=== PATIENT | female | born 1970 | race Caucasian/White ===

== ENCOUNTER 2018-09-03 22:32 | Emergency (ER) | payer BC, SELFPAY ==
[2018-09-03 23:43] LABS: Absolute Lymphocytes (CBC) 1.9 K/uL (0.7-4.9); Absolute Monocytes 0.5 K/uL (0.1-1.3); Absolute Neutrophil 5.6 K/uL (1.8-8.0); Basophils % 0.6 % (0-1.3); Eosinophils % 0.5 % (0-4.4); Hematocrit 33.5 % (36.0-45.0); Lymphocytes % 24.2 % (15.3-44.8); MCH 32.3 pg (27.0-35.0); MCV 92.1 fL (80-100); MPV 8.1 fL (7.6-11.3); Monocytes % 5.8 % (3.3-12.3); RBC Red Blood Cell Count 3.64 M/uL (3.86-4.86)
[2018-09-03 23:52] LABS: ALT/SGPT 16 U/L (12-78); AST/SGOT 11 U/L (15-37); Albumin 3.2 g/dL (3.4-5.0); Alkaline Phosphatase 87 U/L (45-117); BUN Blood Urea Nitrogen 21 mg/dL (7-18); Bicarbonate 25 mmol/L (21-32); Bilirubin Total 0.5 mg/dL (0.2-1.0); Glucose Level 359 mg/dL (74-106); Protein, Total 6.2 g/dL (6.4-8.2); Sodium Level 138 mmol/L (136-145)
--- NOTE | 2018-09-04 00:29 | ER ---
Nurse's Notes [facility] Name: Dora Bell Age: 48 yrs Sex: Female : 1970 Arrival Date: 09/03/2018 Time: 22:35 Bed 15 Private MD: Diagnosis: Hyperglycemia, unspecified;Vomiting;Viral Gastroenteritis Presentation: 09/03 22:36 Presenting complaint: EMS states: "pt was feeling bad since about 1300 with periods of jd3 vomiting and nausea. around 2100 pt took blood sugar and it was about 536. pt took 20 units of regular insulin. blood sugar was still high when we picked her up.". Transition of care: patient was not received from another setting of care. Onset of symptoms was September 03, 2018. Risk Assessment: Do you want to hurt yourself or someone else? Patient reports no desire to harm self or others. Initial Sepsis Screen: Does the patient meet any 2 criteria? No. Patient's initial sepsis screen is negative. Does the patient have a suspected source of infection? No. Patient's initial sepsis screen is negative. Care prior to arrival: Medication(s) given: Normal saline infusion, 500 mL, IV initiated. 20 GA, in the right hand, Glucose check: 536. 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 - Social history:: Smoking status: Patient uses tobacco products, smokes one-half pack cigarettes per day. - Ebola Screening: : Patient negative for fever greater than or equal to 101.5 degrees Fahrenheit, and additional compatible Ebola Virus Disease symptoms. Screenin:43 Abuse screen: Denies threats or abuse. Nutritional screening: No deficits noted. jd3 Tuberculosis screening: No symptoms or risk factors identified. Fall Risk IV access (20 points). Ambulatory Aid- None/Bed Rest/Nurse Assist (0 pts). Gait- Normal/Bed Rest/Wheelchair (0 pts) Mental Status- Oriented to own ability (0 pts). Total Corona Fall Scale indicates No Risk (0-24 pts). Assessment: 22:40 General: Appears in no apparent distress. comfortable, Behavior is calm, cooperative, aa1 appropriate for age. Pain: Denies pain. Neuro: Level of Consciousness is awake, alert, obeys commands, Oriented to person, place, time, situation, Moves all extremities. Full function Speech is normal. Respiratory: Airway is patent Respiratory effort is even, unlabored, Respiratory pattern is regular, symmetrical. GI: Abdomen is non-distended, Reports nausea, vomiting, Patient currently denies abdominal pain, constipation, diarrhea. : No signs and/or symptoms were reported regarding the genitourinary system. EENT: No signs and/or symptoms were reported regarding the EENT system. Derm: Skin is intact, is healthy with good turgor, Skin is pink, warm \\T\\ dry. Musculoskeletal: Circulation, motion, and sensation intact. Capillary refill < 3 seconds. 23:55 Reassessment: Patient appears in no apparent distress at this time. Patient and/or aa1 family updated on plan of care and expected duration. Pain level reassessed. Patient is alert, oriented x 3, equal unlabored respirations, skin warm/dry/pink. Awaiting CBC results. 09/04 00:39 Reassessment: Patient appears in no apparent distress at this time. Patient is alert, aa1 oriented x 3, equal unlabored respirations, skin warm/dry/pink. Discussed d/c \\T\\ f/u instructions with pt \\T\\ spouse; denies questions or concerns at this time Patient denies pain at this time. Patient states feeling better. Vital Signs: 09/03 22:42 BP 135 / 74; Pulse 91; Resp 16 S; Temp 98.5(O); Pulse Ox 98% on R/A; Weight 65.77 kg jd3 (R); Height 5 ft. 5 in. (165.10 cm) (R); Pain 0/10; 23:55 BP 130 / 70; Pulse 88; Resp 16; Pulse Ox 96% on R/A; Pain 0/10; aa1 09/04 00:39 BP 133 / 68; Pulse 87; Resp 18; Temp 98.6; Pulse Ox 96% on R/A; Pain 0/10; aa1 09/03 22:42 Body Mass Index 24.13 (65.77 kg, 165.10 cm) [facility] ED Course: 09/03 22:35 Patient arrived in ED. jd3 22:38 David Perry NP is PHCP. pm1 22:38 Humza Herring MD is Attending Physician. pm1 22:39 Triage completed. jd3 22:40 Maintain EMS IV. Dressing intact. Site clean \\T\\ dry. Gauge \\T\\ site: 20g R hand. aa 1 22:42 Arm band placed on. jd3 22:43 Patient has correct armband on for positive identification. Bed in low position. Call [facility] light in reach. Side rails up X 1. Adult w/ patient. 22:45 Adilene Clancy, RN is Primary Nurse. aa1 23:08 Initial lab(s) drawn, by nd, sent to lab. aa1 09/04 00:39 No provider procedures requiring assistance completed. IV discontinued, intact, aa1 bleeding controlled, No redness/swelling at site. Pressure dressing applied. Administered Medications: No medications were administered Point of Care Testing: Blood Glucose: 09/03 22:36 Blood Glucose: 378 mg/dL; ds4 Ranges: Outcome: 09/04 00:28 Discharge ordered by MD. pm1 00:39 Discharged to home ambulatory, with significant other. aa1 00:39 Condition: good 00:39 Discharge instructions given to patient, significant other, Instructed on discharge instructions, follow up and referral plans. medication usage, Demonstrated understanding of instructions, follow-up care, medications, Prescriptions given X 1. 00:41 Patient left the ED. aa1 Signatures: Adilene Clancy, CARLEY RN aa1 Lio Azevedo ds4 David Perry NP MACHINE BILLER pm1 Geovanni Tristan RN RN jd3
--- NOTE | 2018-09-04 00:30 | EDPHYS ---
Physician Documentation [facility] Name: Dora Bell Age: 48 yrs Sex: Female : 1970 Arrival Date: 09/03/2018 Time: 22:35 Bed 15 Private MD: ED Physician Humza Herring HPI: 09/04 00:27 This 48 yrs old Female presents to ER via EMS with complaints of pm1 Hyperglycemia. 00:30 The patient or guardian reports hyperglycemia, that was potentially precipitated by not pm1 taking her long acting insulin today. Onset: The symptoms/episode began/occurred today. Associated signs and symptoms: Pertinent positives: vomiting, Pertinent negatives: diarrhea. Current symptoms: In the emergency department the patient's symptoms have improved. The patient has experienced similar episodes in the past, several times. The patient has not recently seen a physician. Patient with family members who are having stomach flu. Patient believes that she is starting to get that also. Reports 4 episodes of vomiting back to back and she felt relieved after vomiting. Patient checked her sugar and the reading was high. She did not take her long acting insulin today. 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 - Social history:: Smoking status: Patient uses tobacco products, smokes one-half pack cigarettes per day. - Ebola Screening: : Patient negative for fever greater than or equal to 101.5 degrees Fahrenheit, and additional compatible Ebola Virus Disease symptoms. ROS: 09/04 00:30 Constitutional: Negative for fever, chills, and weight loss, Eyes: Negative for injury, pm1 pain, redness, and discharge, ENT: Negative for injury, pain, and discharge, Neck: Negative for injury, pain, and swelling, Cardiovascular: Negative for chest pain, palpitations, and edema, Respiratory: Negative for shortness of breath, cough, wheezing, and pleuritic chest pain. Back: Negative for injury and pain, : Negative for injury, bleeding, discharge, and swelling, MS/Extremity: Negative for injury and deformity, Skin: Negative for injury, rash, and discoloration, Neuro: Negative for headache, weakness, numbness, tingling, and seizure. Abdomen/GI: Positive for nausea and vomiting, Negative for abdominal pain, vomiting. Exam: 00:30 Constitutional: This is a well developed, well nourished patient who is awake, alert, pm1 and in no acute distress. Head/Face: Normocephalic, atraumatic. Eyes: Pupils equal round and reactive to light, extra-ocular motions intact. Lids and lashes normal. Conjunctiva and sclera are non-icteric and not injected. Cornea within normal limits. Periorbital areas with no swelling, redness, or edema. ENT: Nares patent. No nasal discharge, no septal abnormalities noted. Tympanic membranes are normal and external auditory canals are clear. Oropharynx with no redness, swelling, or masses, exudates, or evidence of obstruction, uvula midline. Mucous membranes moist. Neck: Trachea midline, no thyromegaly or masses palpated, and no cervical lymphadenopathy. Supple, full range of motion without nuchal rigidity, or vertebral point tenderness. No Meningismus. Chest/axilla: Normal chest wall appearance and motion. Nontender with no deformity. No lesions are appreciated. Cardiovascular: Regular rate and rhythm with a normal S1 and S2. No gallops, murmurs, or rubs. Normal PMI, no JVD. No pulse deficits. Respiratory: Lungs have equal breath sounds bilaterally, clear to auscultation and percussion. No rales, rhonchi or wheezes noted. No increased work of breathing, no retractions or nasal flaring. Abdomen/GI: Soft, non-tender, with normal bowel sounds. No distension or tympany. No guarding or rebound. No evidence of tenderness throughout. Back: No spinal tenderness. No costovertebral tenderness. Full range of motion. Skin: Warm, dry with normal turgor. Normal color with no rashes, no lesions, and no evidence of cellulitis. MS/ Extremity: Pulses equal, no cyanosis. Neurovascular intact. Full, normal range of motion. Neuro: Awake and alert, GCS 15, oriented to person, place, time, and situation. Cranial nerves II-XII grossly intact. Motor strength 5/5 in all extremities. Sensory grossly intact. Cerebellar exam normal. Normal gait. Vital Signs: 09/03 22:42 BP 135 / 74; Pulse 91; Resp 16 S; Temp 98.5(O); Pulse Ox 98% on R/A; Weight 65.77 kg jd3 (R); Height 5 ft. 5 in. (165.10 cm) (R); Pain 0/10; 23:55 BP 130 / 70; Pulse 88; Resp 16; Pulse Ox 96% on R/A; Pain 0/10; aa1 09/04 00:39 BP 133 / 68; Pulse 87; Resp 18; Temp 98.6; Pulse Ox 96% on R/A; Pain 0/10; aa1 09/03 22:42 Body Mass Index 24.13 (65.77 kg, 165.10 cm) jd3 MDM: 09/03 22:39 Patient medically screened. pm1 09/04 00:20 Differential diagnosis: DKA, hyperglycemia. pm1 00:27 Data reviewed: vital signs. Data interpreted: Pulse oximetry: on room air is 96 %. pm1 Interpretation: normal. Counseling: I had a detailed discussion with the patient and/or guardian regarding: the historical points, exam findings, and any diagnostic results supporting the discharge/admit diagnosis, lab results, the need for outpatient follow up, to return to the emergency department if symptoms worsen or persist or if there are any questions or concerns that arise at home. 09/03 22:39 Order name: glucometer results - FOR PT WITH NO ID; Complete Time: 23:00 ds4 09/03 22:44 Order name: CBC with Diff; Complete Time: 00:26 pm1 09/03 22:44 Order name: IV Saline Lock; Complete Time: 22:46 pm1 09/03 22:44 Order name: CMP; Complete Time: 23:59 pm1 09/03 22:44 Order name: Ketone, Serum; Complete Time: 23:59 pm1 Administered Medications: No medications were administered Point of Care Testing: Blood Glucose: 09/03 22:36 Blood Glucose: 378 mg/dL; ds4 Ranges: Critical Glucose Levels:Adult <50 mg/dl or >400 mg/dl <40 mg/dl or >180 mg/dl Disposition: 09/04/18 00:28 Discharged to Home. Impression: Hyperglycemia, unspecified, Vomiting, Viral Gastroenteritis. - Condition is Stable. - Discharge Instructions: Hyperglycemia, Nausea and Vomiting, Adult, Viral Gastroenteritis, Adult, Blood Glucose Monitoring, Adult. - Prescriptions for Zofran 4 mg Oral Tablet - take 1 tablet by ORAL route every 12 hours As needed; 20 tablet. - Medication Reconciliation Form, Thank You Letter form. - Follow up: Emergency Department; When: As needed; Reason: Worsening of condition. Follow up: Private Physician; When: 2 - 3 days; Reason: Recheck today's complaints, Continuance of care, Re-evaluation by your physician. - Problem is new. - Symptoms have improved. Addendum: 09/07/2018 04:02 Co-signature as Attending Physician, Humza Herring MD. g s Signatures: Dispatcher [employer] EDAdilene Wooten RN RN aa1 David Perry, REFRIGERATED NATIONAL TRUCK DRIVER REFRIGERATED NATIONAL TRUCK DRIVER pm1 Humza Herring MD MD gs Davies, Jonathon, RN RN jd3 Corrections: (The following items were deleted from the chart) 09/04 00:34 09/03 22:44 Urine Dipstick-Ancillary ordered. pm1 aa1 09/04 00:34 09/03 22:44 Urine Test ordered. pm1 aa1 09/04 00:41 00:28 09/04/2018 00:28 Discharged to Home. Impression: Hyperglycemia, unspecified; aa1 Vomiting; Viral Gastroenteritis. Condition is Stable. Forms are Medication Reconciliation Form, Thank You Letter, Antibiotic Education, Prescription Opioid Use. Follow up: Emergency Department; When: As needed; Reason: Worsening of condition. Follow up: Private Physician; When: 2 - 3 days; Reason: Recheck today's complaints, Continuance of care, Re-evaluation by your physician. Problem is new. Symptoms have improved. pm1
== END 2018-09-04 00:41 | disposition home or self-care (01) ==
LOC: ER 22:32
DX: E11.65 Type 2 diabetes mellitus with hyperglycemia (principal); A08.4 Viral intestinal infection, unspecified; E03.9 Hypothyroidism, unspecified; F17.210 Nicotine dependence, cigarettes, uncomplicated; Z79.4 Long term (current) use of insulin
CPT/HCPCS: 36415; 80053; 82010; 82962; 85025; 99283

== ENCOUNTER 2019-01-12 22:08 | Emergency (ER) | payer BC ==
[2019-01-12 23:05] LABS: Absolute Lymphocytes (CBC) 1.8 K/uL (0.7-4.9); Absolute Monocytes 0.8 K/uL (0.1-1.3); Absolute Neutrophil 6.7 K/uL (1.8-8.0); Basophils % 1.2 % (0-1.3); Eosinophils % 1.2 % (0-4.4); Hematocrit 35.1 % (36.0-45.0); Lymphocytes % 18.5 % (15.3-44.8); MPV 8.5 fL (7.6-11.3); Monocytes % 8.5 % (3.3-12.3); RBC Red Blood Cell Count 3.99 M/uL (3.86-4.86)
[2019-01-12] MEDS ORDERED: ALBUTEROL 2.5 MG/3 ML NEB SOL ONE (23:15)
[2019-01-12] MEDS ORDERED: IPRATROPIUM BROM 0.5MG/2.5ML ONE (23:15)
[2019-01-12] MEDS ORDERED: NA CHLORIDE 0.9% 1,000 ML ONE (23:15)
[2019-01-12 23:29] LABS: ALT/SGPT 17 U/L (12-78); AST/SGOT 26 U/L (15-37); Albumin 3.1 g/dL (3.4-5.0); Alkaline Phosphatase 111 U/L (45-117); BUN Blood Urea Nitrogen 12 mg/dL (7-18); Bicarbonate 26 mmol/L (21-32); Bilirubin Direct < 0.1 mg/dL (0-0.2); Bilirubin Total 0.4 mg/dL (0.2-1.0); Glucose Level 186 mg/dL (74-106); Lipase 38 U/L (73-393); Protein, Total 6.6 g/dL (6.4-8.2); Sodium Level 137 mmol/L (136-145)
--- NOTE | 2019-01-13 00:05 | ER ---
Nurse's Notes [facility] Name: Dora Bell Age: 48 yrs Sex: Female : 1970 Arrival Date: 01/12/2019 Time: 22:12 Bed 23 Private MD: Diagnosis: Acute bronchitis;Hyperglycemia, unspecified Presentation: 01/12 22:30 Presenting complaint: Patient states: feeling sick for a week. C/O cough and ca1 congestion. Pt states, "I am diabetic and may be be on DKA right now. I had the same symptoms before when I had DKA". Transition of care: patient was not received from another setting of care. Onset of symptoms was January 12, 2019. Risk Assessment: Do you want to hurt yourself or someone else? Patient reports no desire to harm self or others. Initial Sepsis Screen: Does the patient meet any 2 criteria? No. Patient's initial sepsis screen is negative. Does the patient have a suspected source of infection? Yes: Productive cough/pneumonia. Care prior to arrival:. 22:30 Method Of Arrival: Wheelchair ca1 22:30 Acuity: DAVE 3 ca1 Triage Assessment: 22:36 General: Appears in no apparent distress. Behavior is calm, cooperative, appropriate ca1 for age. Pain: Complains of pain in neck Pain does not radiate. Pain currently is 4 out of 10 on a pain scale. Pain began 2-3 days ago. Respiratory: Airway is patent Respiratory effort is even, unlabored, Respiratory pattern is regular, symmetrical, Breath sounds are clear bilaterally. 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 - Social history:: Smoking status: Patient uses tobacco products, smokes one-half pack cigarettes per day. - Ebola Screening: : No symptoms or risks identified at this time. Screenin:39 Abuse screen: Denies threats or abuse. Denies injuries from another. Nutritional ca1 screening: No deficits noted. Tuberculosis screening: No symptoms or risk factors identified. Fall Risk None identified. Assessment: 22:39 General: Appears in no apparent distress. uncomfortable, Behavior is calm, cooperative, ca1 appropriate for age. Pain: Complains of pain in neck Pain does not radiate. Pain currently is 4 out of 10 on a pain scale. Pain began 2-3 days ago. Neuro: Level of Consciousness is awake, alert, obeys commands, Oriented to person, place, time, situation. Cardiovascular: Heart tones S1 S2 present Capillary refill < 3 seconds Patient's skin is warm and dry. Respiratory: Reports cough that is Airway is patent Respiratory effort is even, unlabored, Respiratory pattern is regular, symmetrical, Breath sounds are clear bilaterally. GI: Abdomen is flat, non-distended, Bowel sounds present X 4 quads. Abd is soft and non tender X 4 quads. : No deficits noted. No signs and/or symptoms were reported regarding the genitourinary system. EENT: Reports nasal congestion nasal discharge that is watery. Derm: Skin is intact, is healthy with good turgor, Skin is pink, warm \\T\\ dry. Musculoskeletal: Circulation, motion, and sensation intact. Capillary refill < 3 seconds. 23:46 Reassessment: Patient appears in no apparent distress at this time. Patient and/or ca1 family updated on plan of care and expected duration. Pain level reassessed. Patient is alert, oriented x 3, equal unlabored respirations, skin warm/dry/pink. 01/13 00:10 Reassessment: Patient appears in no apparent distress at this time. Patient is alert, ca1 oriented x 3, equal unlabored respirations, skin warm/dry/pink. Vital Signs: 01/12 22:36 BP 141 / 74; Pulse 82; Resp 19 S; Temp 98.1; Pulse Ox 96% on R/A; Weight 62.14 kg; ca1 Height 5 ft. 5 in. (165.10 cm); Pain 4/10; 23:09 BP 155 / 72; Pulse 81; Resp 19 S; Pulse Ox 100% on R/A; ca1 23:46 BP 135 / 62; Pulse 90; Resp 19 S; Pulse Ox 95% on R/A; ca1 01/13 00:10 BP 132 / 60; Pulse 89; Resp 19 S; Pulse Ox 99% on R/A; ca1 01/12 22:36 Body Mass Index 22.80 (62.14 kg, 165.10 cm) ca1 ED Course: 01/12 22:12 Patient arrived in ED. 22:22 Humza Herring MD is Attending Physician. 22:23 Viv Bolden, CARLEY is Primary Nurse. ca1 22:34 Triage completed. ca1 22:36 Arm band placed on right wrist. ca1 22:39 Patient has correct armband on for positive identification. Placed in gown. Bed in low ca1 position. Call light in reach. classroom monitor on. Pulse ox on. NIBP on. Warm blanket given. 22:40 Inserted saline lock: 22 gauge in right hand, using aseptic technique. Blood collected. ca1 22:40 Initial lab(s) drawn, by me, sent to lab. ca1 22:59 XRAY CXR (1 view) In Process Unspecified. EDMS 01/13 00:14 No provider procedures requiring assistance completed. IV discontinued, intact, ca1 bleeding controlled, No redness/swelling at site. Pressure dressing applied. Administered Medications: 04 22:40 Drug: Albuterol 2.5 mg Route: Inhalation; ca1 22:40 Drug: AtroVENT Aerosol 0.5 mg Route: Inhalation; ca1 22:44 Drug: NS 0.9% 1000 ml Route: IV; Rate: 1 bolus; Site: right hand; ca1 01/13 00:01 Follow up: Urine output 350 ml; Response: No adverse reaction; IV Status: Completed ca1 infusion Output: 00:01 Urine: 350ml; Total: 350ml. ca1 Outcome: 00:04 Discharge ordered by . 00:14 Discharged to home ambulatory, with significant other. ca1 00:14 Condition: stable 00:14 Discharge instructions given to patient, Instructed on discharge instructions, follow up and referral plans. medication usage, Demonstrated understanding of instructions, follow-up care, medications, Prescriptions given X 1. 00:15 Patient left the ED. ca1 Signatures: Dispatcher [employer] EDWI Stacey Painting Gregory, MD MD Viv Bolden RN RN ca1
--- NOTE | 2019-01-13 00:06 | EDPHYS ---
Physician Documentation [facility] Name: Dora Bell Age: 48 yrs Sex: Female : 1970 Arrival Date: 01/12/2019 Time: 22:12 Bed 23 Private MD: ED Physician Humza Herring HPI: 01/12 23:59 This 48 yrs old Female presents to ER via Wheelchair with complaints of gs Cough, Congestion, laryngitis. 23:59 The patient or guardian reports cough, described as moderate. Onset: The gs symptoms/episode began/occurred 1 week(s) ago, and became persistent. Severity of symptoms: At their worst the symptoms were moderate, in the emergency department the symptoms are unchanged. Modifying factors: The symptoms are alleviated by nothing, the symptoms are aggravated by nothing. Associated signs and symptoms: Pertinent negatives: fever. The patient has experienced similar episodes in the past, a few times. 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 - Social history:: Smoking status: Patient uses tobacco products, smokes one-half pack cigarettes per day. - Ebola Screening: : No symptoms or risks identified at this time. ROS: 23:59 All other systems are negative. gs Exam: 23:59 Head/Face: Normocephalic, atraumatic. Eyes: Pupils equal round and reactive to light, gs extra-ocular motions intact. Lids and lashes normal. Conjunctiva and sclera are non-icteric and not injected. Cornea within normal limits. Periorbital areas with no swelling, redness, or edema. Neck: Trachea midline, no thyromegaly or masses palpated, and no cervical lymphadenopathy. Supple, full range of motion without nuchal rigidity, or vertebral point tenderness. No Meningismus. Chest/axilla: Normal chest wall appearance and motion. Nontender with no deformity. No lesions are appreciated. Cardiovascular: Regular rate and rhythm with a normal S1 and S2. No gallops, murmurs, or rubs. Normal PMI, no JVD. No pulse deficits. Abdomen/GI: Soft, non-tender, with normal bowel sounds. No distension or tympany. No guarding or rebound. No evidence of tenderness throughout. Back: No spinal tenderness. No costovertebral tenderness. Full range of motion. Skin: Warm, dry with normal turgor. Normal color with no rashes, no lesions, and no evidence of cellulitis. MS/ Extremity: Pulses equal, no cyanosis. Neurovascular intact. Full, normal range of motion. Neuro: Awake and alert, GCS 15, oriented to person, place, time, and situation. Cranial nerves II-XII grossly intact. Motor strength 5/5 in all extremities. Sensory grossly intact. Cerebellar exam normal. Normal gait. 23:59 Constitutional: The patient appears alert, awake. 23:59 ENT: TM's: are normal, Posterior pharynx: is normal, airway is patent, no erythema, Voice: is hoarse. 23:59 Respiratory: the patient does not display signs of respiratory distress, Respirations: normal, symetrical, no retractions, Breath sounds: rhonchi, that are mild, are scattered, wheezing: that is mild, is scattered. Vital Signs: 22:36 BP 141 / 74; Pulse 82; Resp 19 S; Temp 98.1; Pulse Ox 96% on R/A; Weight 62.14 kg; ca1 Height 5 ft. 5 in. (165.10 cm); Pain 4/10; 23:09 BP 155 / 72; Pulse 81; Resp 19 S; Pulse Ox 100% on R/A; ca1 23:46 BP 135 / 62; Pulse 90; Resp 19 S; Pulse Ox 95% on R/A; ca1 01/13 00:10 BP 132 / 60; Pulse 89; Resp 19 S; Pulse Ox 99% on R/A; ca1 01/12 22:36 Body Mass Index 22.80 (62.14 kg, 165.10 cm) ca1 MDM: 01/12 22:34 Patient medically screened. 23:59 Differential Diagnosis: Bronchitis Influenza Viral Syndrome Pneumonia. Data reviewed: vital signs, nurses notes, lab test result(s), radiologic studies. Counseling: I had a detailed discussion with the patient and/or guardian regarding: the historical points, exam findings, and any diagnostic results supporting the discharge/admit diagnosis, lab results, radiology results, the need for outpatient follow up. Response to treatment: the patient's symptoms have markedly improved after treatment, and as a result, I will discharge patient. 01/12 22:38 Order name: Basic Metabolic Panel; Complete Time: 23:58 01/12 22:38 Order name: CBC with Diff; Complete Time: 23:58 01/12 22:38 Order name: Hepatic Function; Complete Time: 23:58 01/12 22:38 Order name: Lipase; Complete Time: 23:58 01/12 22:38 Order name: Urine Microscopic Only 01/13 00:14 Order name: Urine Dipstick--Ancillary (enter results) [facility] 01/12 22:38 Order name: IV Saline Lock; Complete Time: 23:08 01/12 22:38 Order name: Labs collected and sent; Complete Time: 23:08 01/12 22:38 Order name: XRAY CXR (1 view) 01/12 22:38 Order name: Urine Test (obtain specimen); Complete Time: 00:01 01/13 00:14 Order name: Urine --Ancillary (enter results) [facility] 01/12 22:38 Order name: Urine Dipstick-Ancillary (obtain specimen); Complete Time: 00:01 Administered Medications: 22:40 Drug: Albuterol 2.5 mg Route: Inhalation; ca1 22:40 Drug: AtroVENT Aerosol 0.5 mg Route: Inhalation; ca1 22:44 Drug: NS 0.9% 1000 ml Route: IV; Rate: 1 bolus; Site: right hand; ca1 01/13 00:01 Follow up: Urine output 350 ml; Response: No adverse reaction; IV Status: Completed ca1 infusion Disposition: 01/13/19 00:04 Discharged to Home. Impression: Acute bronchitis, Hyperglycemia, unspecified. - Condition is Stable. - Discharge Instructions: Acute Bronchitis, Adult. - Prescriptions for Albuterol Sulfate 90 mcg/actuation - inhale 1-2 puff by INHALATION route every 4-6 hours; 1 Inhaler. - Medication Reconciliation Form, Thank You Letter, Antibiotic Education, Prescription Opioid Use form. - Follow up: Private Physician; When: 1 - 2 days; Reason: Re-evaluation by your physician. Signatures: Dispatcher [employer] Humza Collins MD MD gs Acob, Cheryl RN RN ca1 Corrections: (The following items were deleted from the chart) 00:15 00:04 01/13/2019 00:04 Discharged to Home. Impression: Acute bronchitis; Hyperglycemia, ca1 unspecified. Condition is Stable. Forms are Medication Reconciliation Form, Thank You Letter, Antibiotic Education, Prescription Opioid Use. Follow up: Private Physician; When: 1 - 2 days; Reason: Re-evaluation by your physician. gs
[2019-01-13 00:11] LABS: Urine Bacteria <20 /HPF (<20); Urine Culture Reflex Order NOT NEEDED; Urine RBC NONE SEEN /HPF (NONE SEEN)
[2019-01-13 00:58] LABS: Urine Blood NEGATIVE (NEG); Urine Glucose 2+ (NEG); Urine Protein 1+ (NEG); Urine Specific Gravity 1.015 (1.005-1.030)
--- NOTE | 2019-01-13 11:37 | RAD REPORT ---
EXAM DESCRIPTION: RAD - Chest Single View - 01/12/2019 11:01 pm CLINICAL HISTORY: COUGH Chest pain. COMPARISON: Chest Pa And Lat (2 Views) dated 11/26/2017; Chest Single View dated 06/19/2017 FINDINGS: Portable technique limits examination quality. Mild interstitial prominence is present with vague opacity in the left lung base which may represent atelectasis or developing pneumonia. The heart is normal in size. No displaced fractures.
== END 2019-01-13 00:15 | disposition home or self-care (01) ==
LOC: ER 22:08
DX: J20.9 Acute bronchitis, unspecified (principal); E11.65 Type 2 diabetes mellitus with hyperglycemia; E03.9 Hypothyroidism, unspecified; Z88.5 Allergy status to narcotic agent; Z88.0 Allergy status to penicillin; Z88.8 Allergy status to other drugs, medicaments and biological substances; F17.210 Nicotine dependence, cigarettes, uncomplicated
CPT/HCPCS: 36415; 71045; 80048; 80076; 81003; 81015; 81025; 83690; 85025; 96360; 99285; J7030

== ENCOUNTER 2019-10-02 18:48 | Emergency (ER) | payer BC ==
--- OUTSIDE RECORDS SUMMARY | 2019-10-02 18:50 | XMS REPORT ---
:1970 [facility] Address [address] [place] [address] [address] [place] [address] Care Team Providers Name Role Phone Unavailable Unavailable Unavailable Problems This patient has no known problems. Allergies, Adverse Reactions, Alerts This patient has no known allergies or adverse reactions. Medications This patient has no known medications.
--- OUTSIDE RECORDS SUMMARY | 2019-10-02 18:50 | XMS REPORT | Summary of Care ---
:1970 Author Organization [facility] - Health Address [address] [place] [address] Care Team Providers Name Role Phone Helen Jalloh MD Primary Care Provider Encounter Details Date Type Department Care Team Description 04/24/2019 Orders Only [facility] Doctor Unassigned, No [address] [facility] Name [id number] [place] [address] Allergies Active Allergy Reactions Severity Noted Date Comments Codeine Itching 10/01/2014 itching Prochlorperazine Edisylate Rash 09/30/2014 Morphine Itching 12/24/2013 documented as of this encounter (statuses as of 05/16/2019) Medications Medication Sig Dispensed Refills Start Date End Date Status ferrous sulfate 325 Take 1 Tab by 90 Tab 4 10/07/2014 Active mg (65 mg iron) mouth 3 (three) tablet times daily with meals. blood sugar Use as directed, 540 Strip 3 08/17/2015 Active diagnostic uses 6 times (TRUETRACK TEST) daily, DX:E10.69 stripIndications: Diabetes mellitus type 1, uncontrolled, with complications, Uncontrolled type 1 diabetes mellitus with proteinuria or albuminuria aspirin 81 mg Take 1 tablet by 90 tablet 3 07/08/2016 Active chewable mouth daily. tabletIndications: CAD S/P percutaneous coronary angioplasty pantoprazole 40 mg Take 1 tablet by 30 tablet 0 04/26/2017 Active EC mouth daily. tabletIndications: GERD without esophagitis atorvastatin 40 mg Take 1 tablet by 90 tablet 3 04/28/2017 Active tabletIndications: mouth at bedtime. Hyperlipidemia, unspecified hyperlipidemia type sucralfate 1 gram Take 1 tablet by 180 tablet 4 04/28/2017 Active tabletIndications: mouth before meals GERD without and at bedtime. esophagitis triamcinolone 0.1 % Apply to area(s) 60 mL 1 04/28/2017 Active lotionIndications: 3 (three) times Scalp ulceration, daily. with unspecified severity Insulin Use 4 times 120 Syringe 0 06/01/2018 Active Syringe-Needle, Dis daily-250.83 Un 1 mL 29 gauge x 1/2" SyrgIndications: Diabetes mellitus type 1, uncontrolled, with complications levothyroxine 137 Take 1 tablet by 90 tablet 3 07/02/2018 Active mcg mouth every tabletIndications: morning. E03.9 Primary hypothyroidism insulin glargine 100 inject 26 Units 75 mL 3 07/02/2018 Active unit/mL under the skin at injectionIndications bedtime. : Diabetes mellitus type 1, uncontrolled, with complications insulin lispro, Take up to 50 2 Vial 3 07/02/2018 Active human, (HUMALOG units daily U-100 INSULIN) 100 according to unit/mL carbohydrate injectionIndications intake-E 10.69 : Diabetes mellitus type 1, uncontrolled, with complications insulin aspart RAPID Take up to 50 2 Vial 3 07/02/2018 Active (NOVOLOG U-100 units daily INSULIN ASPART) 100 according to unit/mL carbohydrate injectionIndications intake-E 10.69 : Diabetes mellitus type 1, uncontrolled, with complications albuterol (PROAIR Inhale 2 Puffs 8.5 g 1 01/16/2019 Active HFA) 90 every 4 (four) mcg/actuation hours as needed inhalerIndications: for Wheezing or Moderate persistent Shortness of asthmatic bronchitis Breath. with acute exacerbation azithromycin 250 mg Take 1 tablet by 1 Package 0 01/18/2019 Active tabletIndications: mouth daily. Cough polymyxin B Place 1 Drop in 10 mL 0 03/19/2019 Active sulf-trimethoprim both eyes every 4 10,000 unit- 1 mg/mL (four) hours. ophthalmic dropsIndications: Acute viral conjunctivitis of right eye olopatadine Place 1 Drop in 5 mL 1 03/22/2019 Active (PATANOL) 0.1 % right eye 2 (two) ophthalmic times daily. solutionIndications: Acute viral conjunctivitis of right eye levothyroxine Take 1 tablet by 90 tablet 3 04/05/2019 Active (SYNTHROID) 137 mcg mouth every tabletIndications: morning. Hyperlipidemia, unspecified hyperlipidemia type clopidogrel 75 mg Take 1 tablet by 90 tablet 3 04/05/2019 Active tabletIndications: mouth daily. CAD S/P percutaneous coronary angioplasty atorvastatin 40 mg Take 1 tablet by 90 tablet 3 04/05/2019 Active tabletIndications: mouth at bedtime. Hyperlipidemia, unspecified hyperlipidemia type SERTraline (ZOLOFT) Take 1 tablet by 90 tablet 3 04/05/2019 Active 50 mg mouth daily. tabletIndications: Depression, unspecified depression type metoprolol tartrate Take 1 tablet by 180 tablet 3 04/05/2019 Active 25 mg mouth every 12 tabletIndications: (twelve) hours. CAD S/P percutaneous coronary angioplasty insulin syr/ndl U100 Use as directed 100 Syringe 3 04/05/2019 Active half marielle (BD INSULIN SYRINGE HALF UNIT) 0.3 mL 31 gauge x 15/64" SyrgIndications: Hyperlipidemia, unspecified hyperlipidemia type documented as of this encounter (statuses as of 05/16/2019) Active Problems Problem Noted Date Scalp ulceration, with unspecified severity 04/28/2017 Primary hypothyroidism 08/17/2015 Essential hypertension 05/25/2015 Vitamin D deficiency 02/12/2015 Albuminuria 02/12/2015 s/p off pump CABG (MICS, TYSON-LAD) on 11/24/2014 11/24/2014 Chest pain 11/23/2014 HTN (hypertension) 11/12/2014 HLD (hyperlipidemia) 11/12/2014 CAD S/P percutaneous coronary angioplasty 11/12/2014 Anemia 11/12/2014 Elevated liver enzymes 11/12/2014 Hypoglycemia associated with diabetes 11/12/2014 Elevated troponin 09/30/2014 Generalized anxiety disorder 12/29/2013 Type 1 diabetes mellitus without complication 12/24/2013 Tobacco use disorder 12/24/2013 documented as of this encounter (statuses as of 05/16/2019) Resolved Problems Problem Noted Date Resolved Date Insulin pump status 11/12/2014 05/25/2015 Hypothyroidism 11/12/2014 08/17/2015 documented as of this encounter (statuses as of 05/16/2019) Immunizations Name Administration Dates Next Due Td 10/09/2008 documented as of this encounter Social History Tobacco Use Types Packs/Day Years Used Date Current Every Day Smoker Cigarettes 1 25 Smokeless Tobacco: Former User Alcohol Use Drinks/Week oz/Week Comments Yes occasional drink on weekends Sex Assigned at Date Recorded Not on file Job Start Date Occupation Industry Not on file Not on file Not on file Travel History Travel Start Travel End No recent travel history available. documented as of this encounter Last Filed Vital Signs Not on filedocumented in this encounter Plan of Treatment Health Maintenance Due Date Last Done Comments PNEUMOCOCCAL 0-64 YEARS 1976 COMBINED SERIES (1 of 1 - PPSV23) DTaP,Tdap,and Td Vaccines 10/10/2008 10/09/2008 (1 - Tdap) EYE EXAM 12/05/2015 12/05/2014 (Previously completed) MAMMOGRAM 05/04/2016 05/04/2015, 04/01/2014 FOOT EXAM 08/19/2016 08/19/2015 (Previously completed) PAP SMEAR 12/24/2016 12/24/2013 LDL-C 11/08/2017 11/08/2016, 05/25/2015, 12/09/2014, Additional history exists URINE MICROALBUMIN 11/08/2017 11/08/2016, 02/11/2015 CREATININE (SERUM) 11/16/2017 11/16/2016, 11/08/2016, 08/17/2015, Additional history exists HgA1C 09/18/2019 03/19/2019, 11/08/2016, 08/17/2015, Additional history exists INFLUENZA VACCINE 09/14/2021 Postponed from 06/09/2019 (Patient Refused) documented as of this encounter Goals Goal Patient Goal Associated Recent Patient-Stated? Author Type Problems Progress Quit using Tobacco Use No Cassidy, tobacco Maria D Little MA (cigarettes, smokeless, etc) documented as of this encounter Procedures Procedure Name Priority Date/Time Associated Diagnosis Comments INSURANCE CORRESPONDENCE Routine 04/24/2019 12:01 AM CDT documented in this encounter Results Not on filedocumented in this encounter Insurance Payer Benefit Plan Subscriber ID Effective Dates Phone Address Type / Group BC[employer] OF [employer] [id number] 2018-Solo [phone] [address] PPO/ POS [place] [employer] t 7 [id number] [place] [address] documented as of this encounter
--- OUTSIDE RECORDS SUMMARY | 2019-10-02 18:51 | XMS REPORT | Summary of Care ---
:1970 Author Organization [facility] - [facility] Address [address] [place] [id number] Care Team Providers Name Role Phone Helen Jalloh MD Primary Care Provider Reason for Visit Reason Comments Refill Request Encounter Details Date Type Department Care Team Description 06/13/2019 Refill [facility] Pediatric and Helen Jalloh, Refill Request Adult Primary Care- MD Fernandez [address] [place] [address] [place] [address] [place] [phone] Allergies Active Allergy Reactions Severity Noted Date Comments Codeine Itching 10/01/2014 itching Prochlorperazine Edisylate Rash 09/30/2014 Morphine Itching 12/24/2013 documented as of this encounter (statuses as of 06/18/2019) Medications Medication Sig Dispensed Refills Start End Date Status Date ferrous sulfate 325 Take 1 Tab by 90 Tab 4 Active mg (65 mg iron) mouth 3 (three) 4 tablet times daily with meals. blood sugar Use as directed, 540 Strip 3 Active diagnostic uses 6 times 5 (TRUETRACK TEST) daily, DX:E10.69 stripIndications: Diabetes mellitus type 1, uncontrolled, with complications, Uncontrolled type 1 diabetes mellitus with proteinuria or albuminuria aspirin 81 mg Take 1 tablet by 90 tablet 3 Active chewable mouth daily. 6 tabletIndications: CAD S/P percutaneous coronary angioplasty pantoprazole 40 mg Take 1 tablet by 30 tablet 0 Active EC mouth daily. 7 tabletIndications: GERD without esophagitis sucralfate 1 gram Take 1 tablet by 180 tablet 4 Active tabletIndications: mouth before 7 GERD without meals and at esophagitis bedtime. triamcinolone 0.1 % Apply to 60 mL 1 Active lotionIndications: area(s) 3 7 Scalp ulceration, (three) times with unspecified daily. severity Insulin Use 4 times 120 Syringe 0 Active Syringe-Needle, Dis daily-250.83 8 Un 1 mL 29 gauge x 1/2" SyrgIndications: Diabetes mellitus type 1, uncontrolled, with complications levothyroxine 137 Take 1 tablet by 90 tablet 3 Active mcg mouth every 8 tabletIndications: morning. E03.9 Primary hypothyroidism insulin glargine inject 26 Units 75 mL 3 Active 100 unit/mL under the skin 8 injectionIndication at bedtime. s: Diabetes mellitus type 1, uncontrolled, with complications insulin lispro, Take up to 50 2 Vial 3 Active human, (HUMALOG units daily 8 U-100 INSULIN) 100 according to unit/mL carbohydrate injectionIndication intake-E 10.69 s: Diabetes mellitus type 1, uncontrolled, with complications insulin aspart Take up to 50 2 Vial 3 Active RAPID (NOVOLOG units daily 8 U-100 INSULIN according to ASPART) 100 unit/mL carbohydrate injectionIndication intake-E 10.69 s: Diabetes mellitus type 1, uncontrolled, with complications albuterol (PROAIR Inhale 2 Puffs 8.5 g 1 Active HFA) 90 every 4 (four) 9 mcg/actuation hours as needed inhalerIndications: for Wheezing or Moderate persistent Shortness of asthmatic Breath. bronchitis with acute exacerbation azithromycin 250 mg Take 1 tablet by 1 Package 0 Active tabletIndications: mouth daily. [address] 1 Drop in 10 mL 0 Active sulf-trimethoprim both eyes every 9 10,000 unit- 1 4 (four) hours. mg/mL ophthalmic dropsIndications: Acute viral conjunctivitis of right eye olopatadine Place 1 Drop in 5 mL 1 Active (PATANOL) 0.1 % right eye 2 9 ophthalmic (two) times solutionIndications daily. : Acute viral conjunctivitis of right eye atorvastatin 40 mg Take 1 tablet by 90 tablet 3 Active tabletIndications: mouth at 9 Hyperlipidemia, bedtime. unspecified hyperlipidemia type levothyroxine Take 1 tablet by 90 tablet 3 Active (SYNTHROID) 137 mcg mouth every 9 tabletIndications: morning. Hyperlipidemia, unspecified hyperlipidemia type insulin syr/ndl Use as directed 100 Syringe Active U100 half marielle (BD 9 INSULIN SYRINGE HALF UNIT) 0.3 mL 31 gauge x 15/64" SyrgIndications: Hyperlipidemia, unspecified hyperlipidemia type SERTraline (ZOLOFT) Take 1 tablet by 90 tablet 3 Active 50 mg mouth daily. 9 tabletIndications: Depression, unspecified depression type atorvastatin 40 mg Take 1 tablet by 90 tablet 3 Active tabletIndications: mouth at 9 Hyperlipidemia, bedtime. unspecified hyperlipidemia type clopidogrel 75 mg Take 1 tablet by 90 tablet Active tabletIndications: mouth daily. 9 CAD S/P percutaneous coronary angioplasty metoprolol tartrate Take 1 tablet by 180 tablet Active 25 mg mouth every 12 9 tabletIndications: (twelve) hours. CAD S/P percutaneous coronary angioplasty atorvastatin 40 mg Take 1 tablet by 90 tablet 3 06/18/20 Discontinued tabletIndications: mouth at 7 19 Hyperlipidemia, bedtime. unspecified hyperlipidemia type levothyroxine Take 1 tablet by 90 tablet 3 06/18/20 Discontinued (SYNTHROID) 137 mcg mouth every 9 19 tabletIndications: morning. Hyperlipidemia, unspecified hyperlipidemia type clopidogrel 75 mg Take 1 tablet by 90 tablet 3 06/18/20 Discontinued tabletIndications: mouth daily. 9 19 CAD S/P percutaneous coronary angioplasty SERTraline (ZOLOFT) Take 1 tablet by 90 tablet 3 06/18/20 Discontinued 50 mg mouth daily. 9 19 tabletIndications: Depression, unspecified depression type metoprolol tartrate Take 1 tablet by 180 tablet 3 06/18/20 Discontinued 25 mg mouth every 12 9 19 tabletIndications: (twelve) hours. CAD S/P percutaneous coronary angioplasty insulin syr/ndl Use as directed 100 Syringe 3 06/18/20 Discontinued U100 half marielle (BD 9 19 INSULIN SYRINGE HALF UNIT) 0.3 mL 31 gauge x 15/64" SyrgIndications: Hyperlipidemia, unspecified hyperlipidemia type documented as of this encounter (statuses as of 06/18/2019) Active Problems Problem Noted Date Scalp ulceration, [...] as of this encounter (statuses as of 06/18/2019) Resolved Problems Problem Noted Date Resolved Date Insulin pump status 11/12/2014 05/25/2015 Hypothyroidism 11/12/2014 08/17/2015 documented as of this encounter (statuses as of 06/18/2019) Immunizations Name Administration Dates Next Due Td [...] Date Last Done Comments PNEUMOCOCCAL 0-64 YEARS COMBINED 1975 SERIES (1 of 1 - PPSV23) DTaP,Tdap,and Td Vaccines (1 - 10/10/2008 10/09/2008 Tdap) EYE EXAM 12/05/2015 12/05/2014 (Previously completed) MAMMOGRAM 05/04/2016 05/04/2015, 04/01/2014 FOOT EXAM 08/19/2016 08/19/2015 (Previously completed) PAP SMEAR 12/24/2016 12/24/2013 LDL-C 11/08/2017 11/08/2016, 05/25/2015, 12/09/2014, Additional history exists URINE MICROALBUMIN 11/08/2017 11/08/2016, 02/11/2015 CREATININE (SERUM) 11/16/2017 11/16/2016, 11/08/2016, 08/17/2015, Additional history exists INFLUENZA VACCINE (#1) 2019 HgA1C 09/18/2019 03/19/2019, 11/08/2016, 08/17/2015, Additional history exists documented as of this encounter Goals Goal Patient Goal Associated Recent Patient-Stated? Author Type Problems Progress Quit using Tobacco Use No Khanh, carol Little MA (cigarettes, smokeless, etc) documented as of this encounter Results Not on filedocumented in this encounter Visit Diagnoses Diagnosis Hyperlipidemia, unspecified hyperlipidemia type Depression, unspecified depression type CAD S/P percutaneous coronary angioplasty Coronary atherosclerosis of tejon coronary artery documented in this encounter Insurance Payer Benefit Plan Subscriber ID Effective Dates Phone Address Type / Group BC OF [employer] [id number] 2018-[employer]olo [phone] [address] PPO/ POS [place] [employer] t 7 [id number] [place] [address] documented as of this encounter
[2019-10-02] MEDS ORDERED: NA CHLORIDE 0.9% 2,000 ML ONE (20:33)
[2019-10-02 20:42] LABS: Absolute Lymphocytes (CBC) 1.4 K/uL (0.7-4.9); Basophils % 0.7 % (0-1.3); Hematocrit 43.2 % (36.0-45.0); MPV 8.3 fL (7.6-11.3); RBC Red Blood Cell Count 4.67 M/uL (3.86-4.86)
[2019-10-02 20:49] LABS: Protime INR 0.99
--- NOTE | 2019-10-02 20:51 | RAD REPORT ---
EXAM DESCRIPTION: RAD - Chest Single View - 10/02/2019 8:29 pm CLINICAL HISTORY: COUGH Chest pain. COMPARISON: Chest Single View dated 01/12/2019; Chest Pa And Lat (2 Views) dated 11/26/2017; Chest Sing le View dated 06/19/2017 FINDINGS: Portable technique limits examination quality. The lungs are mildly emphysematous but grossly clear. The heart is normal in size. No displaced fract ures. IMPRESSION: Mild COPD.
[2019-10-02 21:02] LABS: ALT/SGPT 16 U/L (12-78); AST/SGOT 25 U/L (15-37); Albumin 2.1 g/dL (3.4-5.0); Alkaline Phosphatase 57 U/L (45-117); BUN Blood Urea Nitrogen 14 mg/dL (7-18); Bicarbonate 15 mmol/L (21-32); Bilirubin Direct < 0.1 mg/dL (0-0.2); Bilirubin Total 0.2 mg/dL (0.2-1.0); CKMB Creatine Kinase MB 1.5 ng/mL (0.3-3.6); Creatine Phosphokinase 64 U/L (26-192); Glucose Level 167 mg/dL (74-106); Lipase 17 U/L (73-393); Potassium 2.9 mmol/L (3.5-5.1); Protein, Total 4.3 g/dL (6.4-8.2); Sodium Level 143 mmol/L (136-145); Troponin (Emerg Dept Use Only) 0.02 ng/mL (0.0-0.045)
[2019-10-02] MEDS ORDERED: OSELTAMIVIR 75 MG CAP ONE (22:10)
[2019-10-02] MEDS ORDERED: POTASSIUM 25 MEQ EFFERV TAB ONE (22:10)
[2019-10-02 22:43] LABS: Arterial Blood Carboxyhemoglob 1.5 % (0-1.5); Blood Gas Oxyhemoglobin 70.5 % (94-97); Blood O2 Saturation 72.5 % (92-98.5)
--- NOTE | 2019-10-02 23:30 | ER ---
Nurse's Notes [facility] Name: Dora Bell Age: 49 yrs Sex: Female : 1970 Arrival Date: 10/02/2019 Time: 18:52 Bed 24 Private MD: Diagnosis: Hyperglycemia, unspecified;Influenza due to identified novel influenza A virus Presentation: 10/02 19:36 Presenting complaint: Patient states: "I have been feeling weak and dizzy lately. I tr5 tested my ketones and they were very high. I have been to the hospital for DKA before and I am scared that this is the same thing.". Transition of care: patient was not received from another setting of care. Onset of symptoms was October 02, 2019. Risk Assessment: Do you want to hurt yourself or someone else? Patient reports no desire to harm self or others. Initial Sepsis Screen: Does the patient meet any 2 criteria? HR > 90 bpm. No. Patient's initial sepsis screen is negative. Does the patient have a suspected source of infection? No. Patient's initial sepsis screen is negative. Care prior to arrival: None. 19:36 Method Of Arrival: Ambulatory tr5 19:36 Acuity: DAVE 3 tr5 Historical: - Allergies: 19:42 codeine sulfate; tr5 19:42 Compazine; tr5 19:42 Morphine; tr5 - Home Meds: 19:42 atorvastatin Oral [Active]; Lantus Sub-Q [Active]; Metoprolol Tartrate Oral [Active]; tr5 Novolog Sub-Q [Active]; Synthroid Oral [Active]; - PMHx: 19:42 Diabetes - IDDM; Hypothyroidism; tr5 - PSHx: 19:42 CABG; tr5 - Immunization history:: Adult Immunizations up to date. - Social history:: Smoking status: Patient uses tobacco products, smokes one pack cigarettes per day. - Ebola Screening: : No symptoms or risks identified at this time. Screenin:00 Abuse screen: Denies threats or abuse. Nutritional screening: No deficits noted. tr5 Tuberculosis screening: No symptoms or risk factors identified. Fall Risk None identified. Assessment: 20:00 General: Appears uncomfortable, Behavior is calm, cooperative, Reports fever for tr5 feeling ill for fatigue for. Pain: Denies pain. Neuro: Level of Consciousness is awake, alert, obeys commands, Oriented to person, place, time, Microbiology Lab Analyst are equal bilaterally Moves all extremities. Reports dizziness, weakness. Cardiovascular: Heart tones present Capillary refill < 3 seconds. Respiratory: Airway is patent Respiratory effort is even, unlabored, Respiratory pattern is regular, symmetrical. GI: No signs and/or symptoms were reported involving the gastrointestinal system. : No signs and/or symptoms were reported regarding the genitourinary system. EENT: No signs and/or symptoms were reported regarding the EENT system. Derm: No signs and/or symptoms reported regarding the dermatologic system. Musculoskeletal: No signs and/or symptoms reported regarding the musculoskeletal system. 21:00 Reassessment: Patient appears in no apparent distress at this time. Patient and/or tr5 family updated on plan of care and expected duration. Pain level reassessed. Patient is alert, oriented x 3, equal unlabored respirations, skin warm/dry/pink. 22:00 Reassessment: Patient appears in no apparent distress at this time. Patient and/or tr5 family updated on plan of care and expected duration. Pain level reassessed. Patient is alert, oriented x 3, equal unlabored respirations, skin warm/dry/pink. Pt's at bedside. 23:00 Reassessment: Patient appears in no apparent distress at this time. No changes from tr5 previously documented assessment. Patient and/or family updated on plan of care and expected duration. Pain level reassessed. 10/03 01:40 Reassessment: Pt is completing fluid bolus per protocol prior to discharge. Pt is tr5 resting in bed and pt's spouse is at bedside. Vital Signs: 10/02 19:42 BP 118 / 60; Pulse 99; Resp 16; Temp 100.1(O); Pulse Ox 96% on R/A; Weight 58.97 kg; tr5 Height 5 ft. 5 in. (165.10 cm); 22:00 BP 142 / 68; Pulse 91; Resp 18; Temp 99.4; Pulse Ox 99% on R/A; tr5 23:00 BP 134 / 73; Pulse 92; Resp 17; Pulse Ox 99% on R/A; tr5 10/03 01:00 BP 143 / 60; Pulse 92; Resp 18; Pulse Ox 97% ; tr5 10/02 19:42 Body Mass Index 21.63 (58.97 kg, 165.10 cm) tr5 ED Course: 10/02 18:52 Patient arrived in ED. mr 19:28 Grover Mir, CARLEY is Primary Nurse. tr5 19:30 David Perry, SHAMAR is PHCP. pm1 19:30 Miky White MD is Attending Physician. pm1 19:39 Triage completed. tr5 19:42 Arm band placed on Patient placed. tr5 20:00 Awaiting lab results. tr5 20:00 Bed in low position. Call light in reach. Side rails up X 1. monitor car operator on. Pulse tr5 ox on. NIBP on. 20:00 Missed attempt(s): 24 gauge in left forearm. Bleeding controlled, band aid applied, jp3 catheter tip intact. 20:10 Inserted saline lock: 24 gauge in left wrist, using aseptic technique. jp3 20:20 Initial lab(s) drawn, by me, sent to lab. First set of blood cultures drawn by me. Flu jp3 and/or RSV swab sent to lab. Strep swab sent to lab. Patient maintains SpO2 saturation greater than 95% on room air. 20:25 X-ray(s) taken. jp3 20:28 Chest Single View XRAY In Process Unspecified. EDMS 21:20 Second set of blood cultures drawn by lab staff. jp3 21:39 CT Abd/Pelvis - IV Contrast Only In Process Unspecified. EDMS 21:40 provided disposable brief and diaper. tampon provided. jp3 21:47 Notified ED physician of a critical lab result(s). K 2.9 and Ca 5.3. tr5 22:00 Awaiting radiology results. tr5 22:30 Awaiting ED provider evaluation, Awaiting re-evaluation by ER provider. tr5 10/03 01:57 No provider procedures requiring assistance completed. IV discontinued. tr5 Administered Medications: 10/02 20:48 Drug: NS 0.9% (30 ml/kg) 30 ml/kg Route: IV; Rate: bolus; Site: right antecubital; tr5 22:10 Drug: Tamiflu 75 mg Route: PO; tr5 22:11 Drug: Potassium Effervescent Tablet 50 mEq Route: PO; tr5 Outcome: 23:28 Discharge ordered by . pm1 10/03 01:57 Discharged to home ambulatory. tr5 Condition: stable Discharge instructions given to patient, family, Instructed on discharge instructions, follow up and referral plans. medication usage, Demonstrated understanding of instructions, follow-up care, medications, Prescriptions given X 2. 01:58 Patient left the ED. tr5 Signatures: Dispatcher [employer] Nikki GoDavid, CUFF TURNER MACHINE OPERATOR CUFF TURNER MACHINE OPERATOR pm1 Benito Lorenzo jp3 Grover Mir, RN RN tr5 Corrections: (The following items were deleted from the chart) 10/02 21:03 21:03 Urine : hCG=Positive, Control=Positive. jp3 jp3 21:45 21:43 ABG drawn. by RT staff, on room air. jp3 jp3
--- NOTE | 2019-10-02 23:30 | EDPHYS ---
Physician Documentation [facility] Name: Dora Bell Age: 49 yrs Sex: Female : 1970 Arrival Date: 10/02/2019 Time: 18:52 Bed 24 Private MD: ED Physician Miky White HPI: 10/02 19:52 This 49 yrs old Female presents to ER via Ambulatory with complaints of pm1 Hyperglycemia and Flu-like symptoms. 19:52 The patient or guardian reports cough, generalized weakness. pm1 19:52 Onset: The symptoms/episode began/occurred today. Severity of symptoms: in the pm1 emergency department the symptoms are unchanged. Associated signs and symptoms: Pertinent positives: Cough and body aches. The patient has experienced similar episodes in the past, several times. Patient with generalized body aches and generalized weakness starting today. She checked her glucose levels and it was in the 400's range with a high ketones reading. She was afraid that she was having DKA again so the gave the patient 12 units of insulin. It dropped her sugar to 70's range so he gave the patient food and glucose level increased to 250. Historical: - Allergies: 19:42 codeine sulfate; tr5 19:42 Compazine; tr5 19:42 Morphine; tr5 - Home Meds: 19:42 atorvastatin Oral [Active]; Lantus Sub-Q [Active]; Metoprolol Tartrate Oral [Active]; tr5 Novolog Sub-Q [Active]; Synthroid Oral [Active]; - PMHx: 19:42 Diabetes - IDDM; Hypothyroidism; tr5 - PSHx: 19:42 CABG; tr5 - Immunization history:: Adult Immunizations up to date. - Social history:: Smoking status: Patient uses tobacco products, smokes one pack cigarettes per day. - Ebola Screening: : No symptoms or risks identified at this time. ROS: 19:52 Eyes: Negative for injury, pain, redness, and discharge, ENT: Negative for injury, pm1 pain, and discharge, Neck: Negative for injury, pain, and swelling, Cardiovascular: Negative for chest pain, palpitations, and edema. 19:52 Abdomen/GI: Negative for abdominal pain, nausea, vomiting, diarrhea, and constipation, Back: Negative for injury and pain, : Negative for injury, bleeding, discharge, and swelling, MS/Extremity: Negative for injury and deformity, Skin: Negative for injury, rash, and discoloration, Neuro: Negative for headache, weakness, numbness, tingling, and seizure. 19:52 Constitutional: Positive for body aches, fatigue, Negative for chills, fever, poor PO intake. 19:52 Respiratory: Positive for cough, Negative for shortness of breath, sputum production, wheezing. Exam: 19:52 Constitutional: This is a well developed, well nourished patient who is awake, alert, pm1 and in no acute distress. Head/Face: Normocephalic, atraumatic. Eyes: Pupils equal round and reactive to light, extra-ocular motions intact. Lids and lashes normal. Conjunctiva and sclera are non-icteric and not injected. Cornea within normal limits. Periorbital areas with no swelling, redness, or edema. ENT: Nares patent. No nasal discharge, no septal abnormalities noted. Tympanic membranes are normal and external auditory canals are clear. Oropharynx with no redness, swelling, or masses, exudates, or evidence of obstruction, uvula midline. Mucous membranes moist. Neck: Trachea midline, no thyromegaly or masses palpated, and no cervical lymphadenopathy. Supple, full range of motion without nuchal rigidity, or vertebral point tenderness. No Meningismus. Chest/axilla: Normal chest wall appearance and motion. Nontender with no deformity. No lesions are appreciated. Cardiovascular: Regular rate and rhythm with a normal S1 and S2. No gallops, murmurs, or rubs. Normal PMI, no JVD. No pulse deficits. Respiratory: Lungs have equal breath sounds bilaterally, clear to auscultation and percussion. No rales, rhonchi or wheezes noted. No increased work of breathing, no retractions or nasal flaring. 19:52 Skin: Warm, dry with normal turgor. Normal color with no rashes, no lesions, and no evidence of cellulitis. MS/ Extremity: Pulses equal, no cyanosis. Neurovascular intact. Full, normal range of motion. 19:52 Abdomen/GI: Inspection: abdomen appears normal, Bowel sounds: normal, Palpation: abdomen is soft and non-tender, in all quadrants. 19:52 Back: pain, of the low back area, normal spinal alignment noted, vertebral tenderness, is not appreciated. 19:52 Neuro: Orientation: is normal, Motor: is normal, moves all fours, Sensation: is normal, no obvious gross deficits. Vital Signs: 19:42 BP 118 / 60; Pulse 99; Resp 16; Temp 100.1(O); Pulse Ox 96% on R/A; Weight 58.97 kg; tr5 Height 5 ft. 5 in. (165.10 cm); 22:00 BP 142 / 68; Pulse 91; Resp 18; Temp 99.4; Pulse Ox 99% on R/A; tr5 23:00 BP 134 / 73; Pulse 92; Resp 17; Pulse Ox 99% on R/A; tr5 10/03 01:00 BP 143 / 60; Pulse 92; Resp 18; Pulse Ox 97% ; tr5 10/02 19:42 Body Mass Index 21.63 (58.97 kg, 165.10 cm) tr5 MDM: 10/02 19:35 Patient medically screened. ilda 22:10 Differential Diagnosis: Other DKA, Influenza, UTI, Pneumonia. pm1 22:50 ED course: Discussed case with Dr. Ram. Patient without anion gap and blood gases pm1 within normal limits for VBG. Patient does not require admission. 23:24 Data reviewed: vital signs. Data interpreted: Pulse oximetry: on room air is 99 %. pm1 Interpretation: normal. 23:27 Counseling: I had a detailed discussion with the patient and/or guardian regarding: the pm1 historical points, exam findings, and any diagnostic results supporting the discharge/admit diagnosis, lab results, radiology results, the need for outpatient follow up, to return to the emergency department if symptoms worsen or persist or if there are any questions or concerns that arise at home. 10/02 19:49 Order name: Basic Metabolic Panel; Complete Time: 21:25 pm1 10/02 19:49 Order name: Blood Culture Adult (2) pm1 10/02 19:49 Order name: CBC with Diff; Complete Time: 20:49 pm1 10/02 19:49 Order name: Ckmb; Complete Time: 21:25 pm1 10/02 19:49 Order name: CPK; Complete Time: 21:25 pm1 10/02 19:49 Order name: Lactate; Complete Time: 21:49 pm1 10/02 19:49 Order name: LFT's; Complete Time: 21:25 pm1 10/02 19:49 Order name: Lipase; Complete Time: 21:25 pm1 10/02 19:49 Order name: Procalcitonin; Complete Time: 22:18 pm1 10/02 19:49 Order name: Protime (+inr); Complete Time: 20:50 pm1 10/02 19:49 Order name: Ptt, Activated; Complete Time: 20:50 pm1 10/02 19:49 Order name: Troponin (emerg Dept Use Only); Complete Time: 21:25 pm1 10/02 19:49 Order name: Flu; Complete Time: 21:25 pm1 10/02 19:49 Order name: Chest Single View XRAY; Complete Time: 21:25 pm1 10/02 19:49 Order name: Accucheck; Complete Time: 20:29 pm1 10/02 19:49 Order name: Cardiac monitoring; Complete Time: 20:29 pm1 10/02 19:49 Order name: EKG - Nurse/Tech; Complete Time: 20:41 pm1 10/02 19:49 Order name: IV Saline Lock - Large Bore; Complete Time: 20:29 pm1 10/02 19:49 Order name: Labs collected and sent; Complete Time: 20:29 pm1 10/02 19:49 Order name: O2 Per Protocol; Complete Time: 20:06 pm1 10/02 19:49 Order name: Strep; Complete Time: 21:25 pm1 10/02 19:49 Order name: ABG; Complete Time: 22:50 pm1 10/02 19:49 Order name: Acetone, Serum; Complete Time: 21:25 pm1 10/02 19:49 Order name: CT Abd/Pelvis - IV Contrast Only pm1 10/02 20:21 Order name: Glucose, Ancillary Testing; Complete Time: 20:37 EDMS 10/02 21:02 Order name: Throat Culture EDMS 10/02 19:49 Order name: O2 Sat Monitoring; Complete Time: 20:06 pm1 Administered Medications: 20:48 Drug: NS 0.9% (30 ml/kg) 30 ml/kg Route: IV; Rate: bolus; Site: right antecubital; tr5 22:10 Drug: Tamiflu 75 mg Route: PO; tr5 22:11 Drug: Potassium Effervescent Tablet 50 mEq Route: PO; tr5 Disposition: 10/03 07:53 Co-signature as Attending Physician, Miky White MD I agree with the assessment and ilda plan of care. Disposition: 10/02/19 23:28 Discharged to Home. Impression: Influenza due to identified novel influenza A virus, Hyperglycemia, unspecified. - Condition is Stable. - Discharge Instructions: Hyperglycemia, Influenza, Adult, Blood Glucose Monitoring, Adult. - Prescriptions for Tamiflu 75 mg Oral Capsule - take 1 tablet by ORAL route every 12 hours for 5 days; 10 tablet. Zofran 4 mg Oral Tablet - take 1 tablet by ORAL route every 12 hours As needed; 20 tablet. Tramadol 50 mg Oral Tablet - take 1 tablet by ORAL route every 8 hours As needed as needed; 12 tablet. - Medication Reconciliation Form, Thank You Letter, Antibiotic Education, Prescription Opioid Use form. - Follow up: Emergency Department; When: As needed; Reason: Worsening of condition. Follow up: Private Physician; When: 2 - 3 days; Reason: Recheck today's complaints, Continuance of care, Re-evaluation by your physician. - Problem is new. - Symptoms have improved. Signatures: Dispatcher [employer] EDVT Miky White MD MD cha Marinas, Patrick, WHARF BUILDER WHARF BUILDER pm1 Grover Mir RN RN tr5 Corrections: (The following items were deleted from the chart) 01:58 10/02 23:28 10/02/2019 23:28 Discharged to Home. Impression: Influenza due to tr5 identified novel influenza A virusHyperglycemia, unspecified. Condition is Stable. Forms are Medication Reconciliation Form, Thank You Letter, Antibiotic Education, Prescription Opioid Use. Follow up: Emergency Department; When: As needed; Reason: Worsening of condition. Follow up: Private Physician; When: 2 - 3 days; Reason: Recheck today's complaints, Continuance of care, Re-evaluation by your physician. Problem is new. Symptoms have improved. pm1
[2019-10-03 03:40] VITALS: TEMP 99.4
[2019-10-03 03:42] VITALS: BP 143/60; O2SAT 97
--- NOTE | 2019-10-03 11:06 | RAD REPORT ---
EXAM DESCRIPTION: CT Abdomen Pelvis W Contrast CLINICAL HISTORY: 49 years Female Flank pain; Fever TECHNIQUE: Contiguous axial images obtained through the abdomen and pelvis following intravenous con trast administration. Coronal and sagittal reformatted images provided. This CT exam was performed according to our departmental dose-optimization program, which includes on e or more of the following dose reduction techniques: automated exposure control, adjustment of the m A and/or kV according to patient size, and/or use of iterative reconstruction technique. COMPARISON: No prior exams provided for comparison. FINDINGS: Minimal atelectasis vs. scarring in the lingula. The liver, biliary tree, gallbladder, pancreas, spleen, adrenal glands, kidneys, urinary bladder, and osseous structures are normal. 3.6 cm degenerated uterine fibroid. No adnexal mass. There is no bowel inflammation, obstruction, free intraperitoneal air, or ascites. The appendix is no rmal. IMPRESSION: No acute abdominal or pelvic abnormalities. 3.6 cm degenerated uterine fibroid. Electronically signed by: Mimi Dhaliwal MD 10/02/2019 10:05 PM MOLD FILLER Due to temporary technical issues with the PACS/Fluency reporting system, reports are being signed by the in house radiologist as a courtesy to ensure prompt reporting. The interpreting radiologist is f ully responsible for the content of the report.
--- NOTE | 2019-10-03 11:58 | EKG ---
Test Date: 2019-10-02 Test Time: 20:34:50 Photocopy Operator: MARCELLA MEASUREMENT RESULTS: Intervals: Rate: 98 FL: 124 QRSD: 84 QT: 352 QTc: 449 [place]: P: 68 FL: 124 QRS: 83 T: 71 INTERPRETIVE STATEMENTS: Normal sinus rhythm Normal ECG No previous ECG available for comparison Electronically Signed On 10-03-19 11:57:02 OVERLOCK COLLAR SETTER by Mick Latif
== END 2019-10-03 01:58 | disposition home or self-care (01) ==
LOC: ER 18:48
DX: J10.1 Influenza due to other identified influenza virus with other respiratory manifestations (principal); E11.65 Type 2 diabetes mellitus with hyperglycemia; E03.9 Hypothyroidism, unspecified; Z79.4 Long term (current) use of insulin; Z88.5 Allergy status to narcotic agent; Z88.8 Allergy status to other drugs, medicaments and biological substances
CPT/HCPCS: 93005; 87040 ×2; 87070; 85025; 80048; 36415; 82010; 82550; 85610; 82947; 80076; 87081; 83605; 85730; 84484; 82553; 83690; 84145; 87804 ×2; 74177; 71045; 82805; 96374; 99285; Q9967; J7030

== ENCOUNTER 2021-07-13 10:44 | Inpatient (IN) | payer BC ==
[2021-07-13 11:38] LABS: Absolute Lymphocytes (CBC) 2.5 K/uL (0.7-4.9); Basophils % 1.1 % (0-1.3); Lymphocytes % 29.3 % (15.3-44.8); RBC Red Blood Cell Count 4.51 M/uL (3.86-4.86)
[2021-07-13 11:43] LABS: Protime INR 1.08
--- NOTE | 2021-07-13 11:50 | RAD REPORT ---
EXAM DESCRIPTION: CT - Head Brain Wo Cont - 07/13/2021 11:39 am CLINICAL HISTORY: int slurred speech x 1 week COMPARISON: Sinus Wo Cont dated 09/11/2018; Head Brain Wo Cont dated 11/26/2017 TECHNIQUE: All CT scans are performed using dose optimization technique as appropriate and may inclu de automated exposure control or mA/KV adjustment according to patient size. FINDINGS: No intracranial hemorrhage, hydrocephalus or extra-axial fluid collection.No areas of brai n edema or evidence of midline shift. The paranasal sinuses and mastoids are clear. The calvarium is intact. IMPRESSION: No acute intracranial abnormality.
--- NOTE | 2021-07-13 11:51 | RAD REPORT ---
EXAM DESCRIPTION: RAD - Chest Single View - 07/13/2021 11:45 am CLINICAL HISTORY: SOB COMPARISON: Chest Single View dated 10/02/2019; Chest Single View dated 01/12/2019; Chest Pa And Lat ( 2 Views) dated 11/26/2017; Chest Single View dated 06/19/2017 FINDINGS: Lines: None. Lungs: No evidence of edema or pneumonia. Emphysema. Pleural: No significant pleural effusions or pneumothorax. Cardiac: The heart size is within normal limits. Bones: No acute fractures. Other: IMPRESSION: No acute cardiopulmonary disease.
[2021-07-13 14:30] LABS: ALT/SGPT 56 U/L (12-78); AST/SGOT 73 U/L (15-37); Albumin 3.3 g/dL (3.4-5.0); Alkaline Phosphatase 120 U/L (45-117); BUN Blood Urea Nitrogen 16 mg/dL (7-18); Bicarbonate 27 mmol/L (21-32); Bilirubin Direct 0.1 mg/dL (0-0.2); Bilirubin Total 0.4 mg/dL (0.2-1.0); Glucose Level 302 mg/dL (74-106); NT PRO-BNP 25 pg/mL (<125); Potassium 4.2 mmol/L (3.5-5.1); Protein, Total 6.5 g/dL (6.4-8.2); Sodium Level 137 mmol/L (136-145); Troponin (Emerg Dept Use Only) < 0.02 ng/mL (0.0-0.045)
--- NOTE | 2021-07-13 15:41 | EDPHYS ---
Physician Documentation [facility] Name: Dora Bell Age: 50 yrs Sex: Female : 1970 Arrival Date: 07/13/2021 Time: 11:04 Bed 8 Private MD: ED Physician Saw Chicas HPI: 07/13 12:41 This 50 yrs old Female presents to ER via EMS with complaints of chest pain. rn 12:41 The patient or guardian reports chest pain that is located primarily in the substernal rn area. Onset: this morning. The pain radiates to Associated signs and symptoms: Pertinent positives: nausea, shortness of breath, Pertinent negatives: abdominal pain, lower extremity pain, lower extremity swelling, palpitations, syncope. The chest pain is described as a heaviness, squeezing. Duration: The patient or guardian reports multiple episodes, that are intermittent. Modifying factors: The symptoms are alleviated by nothing. the symptoms are aggravated by exertion. Severity of pain: At its worst the pain was moderate in the emergency department the pain has improved. The patient has experienced similar episodes in the past. The patient has not recently seen a physician. Patient reports at work this morning, started to have substernal chest pain that radiates to the back, associated with nausea and shortness of breath. States has had myocardial infarction in the past, including bypass and stent. States there are other vessels that are known to have disease and blockages but have not been stented for some reason. Denies feeling ill. No new cough. No trauma. Denies abdominal pain. Feels better currently.. Historical: - Allergies: 11:10 codeine sulfate; ss 11:10 Compazine; ss 11:10 Morphine; ss - PMHx: 11:10 Diabetes - IDDM; Hypothyroidism; Myocardial infarction; CVA; ss - PSHx: 11:10 Cardiac Stents; CABG; ss - Immunization history:: Client reports having NOT received the Covid vaccine. - Family history:: not pertinent. - Hospitalizations: : No recent hospitalization is reported. ROS: 12:41 Constitutional: Negative for fever, chills, and weight loss, Eyes: Negative for injury, rn pain, redness, and discharge, ENT: Negative for injury, pain, and discharge, Neck: Negative for injury, pain, and swelling, Cardiovascular: Negative for palpitations, and edema, Respiratory: Negative for cough, wheezing, and pleuritic chest pain, Abdomen/GI: Negative for abdominal pain, nausea, vomiting, diarrhea, and constipation, Back: Negative for injury and pain, : Negative for injury, bleeding, discharge, and swelling, MS/Extremity: Negative for injury and deformity, Skin: Negative for injury, rash, and discoloration, Neuro: Negative for headache, numbness, tingling, and seizure. Exam: 12:41 Constitutional: This is a well developed, well nourished patient who is awake, alert, rn and in no acute distress. Head/Face: Normocephalic, atraumatic. Eyes: Periorbital areas with no swelling, redness, or edema. Cardiovascular: Regular rate and rhythm. No pulse deficits. Respiratory: No increased work of breathing, no retractions or nasal flaring. Abdomen/GI: Soft, non-tender Skin: Warm, dry MS/ Extremity: Pulses equal, no cyanosis. Neuro: Awake and alert, GCS 15, oriented to person, place, time, and situation. Cranial nerves II-XII grossly intact. Motor strength 5/5 in all extremities. Sensory grossly intact. 15:41 ECG was reviewed by the Attending Physician. rn Vital Signs: 11:00 BP 131 / 70; Pulse 74; Resp 16; Temp 97.4; Pulse Ox 97% on R/A; Weight 63.5 kg; Height ss 5 ft. 5 in. (165.10 cm); Pain 2/10; 12:43 BP 108 / 67; Pulse 67; Resp 17; Pulse Ox 97% on R/A; hb 13:27 BP 119 / 69; Pulse 68; Resp 15; Pulse Ox 98% ; hb 14:24 BP 136 / 81; Pulse 68; Resp 14; Pulse Ox 98% ; hb 16:00 BP 143 / 87; Pulse 69; Resp 14; Pulse Ox 100% ; hb 19:45 BP 118 / 76; Pulse 72; Resp 18; Pulse Ox 98% on R/A; Pain 0/10; wg 19:45 BP 122 / 72; Pulse 74; Resp 17; Pulse Ox 98% on R/A; Pain 0/10; wg 23:17 BP 126 / 80; Pulse 72; Resp 18; Pulse Ox 99% on R/A; Pain 2/10; wg 11:00 Body Mass Index 23.30 (63.50 kg, 165.10 cm) ss 11:00 back pain ss MDM: 11:13 Patient medically screened. rn 15:38 Differential diagnosis: acute myocardial infarction, acute pericarditis, coronary rn artery disease costochondritis, esophagitis, gastroesophageal reflux disease (GERD), pericarditis, pleurisy, pneumothorax, stable angina, unstable angina. HEART Score: History: Moderately Suspicious (1), ECG: Normal (0), Age: > 45 and < 65 years (1), Risk Factors: > or = 3 Risk factors for atherosclerotic disease (2), Troponin: < or = 1 x Normal Limit (0), Total Score = 4. The patient was given aspirin in the Emergency Department. 15:38 Data reviewed: vital signs, nurses notes, lab test result(s), EKG, radiologic studies, rn plain films, and as a result, I will admit patient. Data interpreted: monitoring engineer: rate is 68 beats/min, rhythm is normal sinus rhythm, regular, with no ectopy, Interpretation: normal rate, normal rhythm, Pulse oximetry: on room air is 98 %. Interpretation: normal. 15:39 Test interpretation: by ED physician or midlevel provider: ECG, plain radiologic rn studies, X-ray negative for pneumonia or pneumothorax. Counseling: I had a detailed discussion with the patient and/or guardian regarding: the historical points, exam findings, and any diagnostic results supporting the discharge/admit diagnosis, lab results, radiology results, the need for further work-up and treatment in the hospital. Response to treatment: the patient's symptoms have markedly improved after treatment, and as a result, I will admit patient. Admission orders: after a detailed discussion of the patient's condition and case, the admit orders are written by me. 07/13 11:12 Order name: Basic Metabolic Panel ss 07/13 11:12 Order name: CBC with Diff; Complete Time: 11:56 ss 07/13 11:12 Order name: LFT's; Complete Time: 15:35 ss 07/13 11:12 Order name: Magnesium; Complete Time: 15:35 ss 07/13 11:12 Order name: NT PRO-BNP; Complete Time: 15:35 ss 07/13 11:12 Order name: PT-INR; Complete Time: 11:56 ss 07/13 11:12 Order name: Troponin (emerg Dept Use Only); Complete Time: 15:35 ss 07/13 11:12 Order name: Basic Metabolic Panel; Complete Time: 15:35 EDMS 07/13 17:15 Order name: SARS-COV-2 RT PCR EDMS 07/13 17:20 Order name: T4 Free EDMS 07/13 17:20 Order name: Basic Metabolic Panel EDMS 07/13 17:20 Order name: Basic Metabolic Panel EDMS 07/13 17:20 Order name: Lipid Profile EDMS 07/13 11:12 Order name: XRAY Chest (1 view); Complete Time: 11:56 ss 07/13 11:12 Order name: EKG; Complete Time: 11:12 ss 07/13 11:12 Order name: CT Head Brain wo Cont; Complete Time: 11:56 ss 07/13 17:20 Order name: Lipid Profile EDMS 07/13 17:20 Order name: Thyroid Stimulating Hormone EDMS 07/13 17:20 Order name: Urinalysis EDMS 07/13 17:20 Order name: CBC with Automated Diff EDMS 07/13 17:20 Order name: CBC with Automated Diff EDMS 07/13 17:20 Order name: Troponin I EDMS 07/13 17:20 Order name: Troponin I EDMS 07/13 17:20 Order name: Troponin I EDMS 07/13 17:20 Order name: Troponin I EDMS 07/13 17:24 Order name: Echo with Doppler EDMS 07/13 18:15 Order name: Extrem Venous W Compress Jerson EDMS 07/13 11:12 Order name: Cardiac monitoring; Complete Time: 11:12 ss 07/13 11:12 Order name: EKG - Nurse/Tech; Complete Time: 11:12 ss 07/13 11:12 Order name: IV Saline Lock; Complete Time: 11:12 ss 07/13 11:12 Order name: Labs collected and sent; Complete Time: 11:35 ss 07/13 11:12 Order name: O2 Per Protocol; Complete Time: 11:13 ss 07/13 11:12 Order name: O2 Sat Monitoring; Complete Time: 11:13 ss 07/13 11:48 Order name: Labs - recollect needed: recollect light green tube; Complete Time: 13:39 bd 07/13 13:36 Order name: Labs - recollect needed: recollect light green tube, not enough blood in bd tube; Complete Time: 15:46 07/13 14:00 Order name: Labs - recollect needed: recollect light green tube, again; Complete Time: bd 15:46 07/13 17:26 Order name: 60g Consistent Carbohydrate (ADA 1800/2000); Complete Time: 19:35 EDMS EC:41 Rate is 62 beats/min. Rhythm is regular. QRS [place] is Normal. RI interval is normal. QRS rn interval is normal. QT interval is normal. No Q waves. T waves are Normal. No ST changes noted. Clinical impression: Normal ECG. Interpreted by me. Reviewed by me. Administered Medications: 15:56 Drug: Aspirin Chewable Tablet 324 mg Route: PO; 23:21 Follow up: Response: No adverse reaction Disposition Summary: 07/13/21 15:40 Hospitalization Ordered Hospitalization Status: Observation rn Provider: Maida Rodriguez rn Location: Telemetry/MedSurg (observation) rn Condition: Stable rn Problem: new rn Symptoms: have improved rn Bed/Room Type: Standard rn Room Assignment: 207(07/13/21 23:13) tl1 Diagnosis - Chest pain, unspecified rn Forms: - Medication Reconciliation Form rn - SBAR form rn Signatures: Dispatcher [employer] EDMS Janel Hill Roman, MD MD rn Smirch, Shelby, RN RN Chyna Gomez RN RN tl1 Lalo Cuevas RN RN cw2 Ronny Shields RN wg Corrections: (The following items were deleted from the chart) 17:15 16:28 CORONAVIRUS+MR.LAB.BRZ ordered. EDMS EDMS 23:13 15:40 rn tl1
--- NOTE | 2021-07-13 15:41 | ER ---
Nurse's Notes [facility] Name: Dora Bell Age: 50 yrs Sex: Female : 1970 Arrival Date: 07/13/2021 Time: 11:04 Bed 8 Private MD: Diagnosis: Chest pain, unspecified Presentation: 07/13 11:00 Chief complaint: EMS states: SOB and diaphoresis that began at 0900 this morning while ss at work. HX of CVA, CA, diabetes. Prehospitial BGL was 177. Pt c/o back pain x 1 week that is mild and intermittent slurred speech x 1 week. Denies CP at this time. Coronavirus screen: Client denies travel out of the [place] in the last 14 days. Ebola Screen: Patient denies exposure to infectious person. Patient denies travel to an Ebola-affected area in the 21 days before illness onset. Initial Sepsis Screen: Does the patient meet any 2 criteria? No. Patient's initial sepsis screen is negative. Does the patient have a suspected source of infection? No. Patient's initial sepsis screen is negative. Risk Assessment: Do you want to hurt yourself or someone else? Patient reports no desire to harm self or others. Onset of symptoms was July 13, 2021 at 09:00. 11:00 Method Of Arrival: EMS: [facility] ss 11:00 Acuity: DAVE 2 ss 11:13 Care prior to arrival: IV initiated. 22 GA, in the left hand, Glucose check: 177. ss Triage Assessment: 19:32 General: Appears in no apparent distress. Behavior is calm, cooperative. cw2 Historical: - Allergies: 11:10 codeine sulfate; ss 11:10 Compazine; ss 11:10 Morphine; ss - PMHx: 11:10 Diabetes - IDDM; Hypothyroidism; Myocardial infarction; CVA; ss - PSHx: 11:10 Cardiac Stents; CABG; ss - Immunization history:: Client reports having NOT received the Covid vaccine. - Family history:: not pertinent. - Hospitalizations: : No recent hospitalization is reported. Screenin:35 Abuse screen: Denies threats or abuse. Denies injuries from another. Nutritional hb screening: No deficits noted. Tuberculosis screening: No symptoms or risk factors identified. Fall Risk None identified. Assessment: 11:05 General: Appears in no apparent distress. Behavior is calm, cooperative. Pain: Pain hb currently is 2 out of 10 on a pain scale. Neuro: Level of Consciousness is awake, alert, obeys commands, confused, Oriented to person, place. Cardiovascular: Patient's skin is warm and dry. Respiratory: Airway is patent Respiratory effort is even, unlabored, Respiratory pattern is regular, symmetrical. GI: No signs and/or symptoms were reported involving the gastrointestinal system. : No signs and/or symptoms were reported regarding the genitourinary system. EENT: No signs and/or symptoms were reported regarding the EENT system. Derm: Skin is pink, warm \T\ dry. Musculoskeletal: No signs and/or symptoms reported regarding the musculoskeletal system. 12:30 Reassessment: Patient appears in no apparent distress at this time. No changes from hb previously documented assessment. Patient and/or family updated on plan of care and expected duration. Pain level reassessed. 13:27 Reassessment: Patient appears in no apparent distress at this time. No changes from hb previously documented assessment. Patient and/or family updated on plan of care and expected duration. Pain level reassessed. 14:24 Reassessment: Patient appears in no apparent distress at this time. No changes from hb previously documented assessment. Patient and/or family updated on plan of care and expected duration. Pain level reassessed. 15:30 Reassessment: Patient appears in no apparent distress at this time. No changes from hb previously documented assessment. Patient and/or family updated on plan of care and expected duration. Pain level reassessed. 16:27 Reassessment: Patient appears in no apparent distress at this time. No changes from hb previously documented assessment. Patient and/or family updated on plan of care and expected duration. Pain level reassessed. 17:44 Reassessment: Patient appears in no apparent distress at this time. No changes from hb previously documented assessment. Patient and/or family updated on plan of care and expected duration. Pain level reassessed. 19:45 Reassessment: Patient appears in no apparent distress at this time. No changes from wg previously documented assessment. Patient and/or family updated on plan of care and expected duration. Pain level reassessed. Patient is alert, oriented x 3, equal unlabored respirations, skin warm/dry/pink. Patient denies pain at this time. 23:18 Reassessment: Patient appears in no apparent distress at this time. No changes from previously documented assessment. Patient and/or family updated on plan of care and expected duration. Pain level reassessed. Patient is alert, oriented x 3, equal unlabored respirations, skin warm/dry/pink. Patient states feeling better. Patient states symptoms have improved. 23:40 Reassessment: Attempting to admit patient to the floor but orders not crossing into [facility]. Registration working on issue. Pt remains comfortable and report called to Arun and advised we would transfer her once the orders crossed. Vital Signs: 11:00 BP 131 / 70; Pulse 74; Resp 16; Temp 97.4; Pulse Ox 97% on R/A; Weight 63.5 kg; Height ss 5 ft. 5 in. (165.10 cm); Pain 2/10; 12:43 BP 108 / 67; Pulse 67; Resp 17; Pulse Ox 97% on R/A; hb 13:27 BP 119 / 69; Pulse 68; Resp 15; Pulse Ox 98% ; hb 14:24 BP 136 / 81; Pulse 68; Resp 14; Pulse Ox 98% ; hb 16:00 BP 143 / 87; Pulse 69; Resp 14; Pulse Ox 100% ; hb 19:45 BP 118 / 76; Pulse 72; Resp 18; Pulse Ox 98% on R/A; Pain 0/10; wg 19:45 BP 122 / 72; Pulse 74; Resp 17; Pulse Ox 98% on R/A; Pain 0/10; wg 23:17 BP 126 / 80; Pulse 72; Resp 18; Pulse Ox 99% on R/A; Pain 2/10; wg 11:00 Body Mass Index 23.30 (63.50 kg, 165.10 cm) ss 11:00 back pain ss Vitals: 23:17 Cardiac Rhythm Assessment Regular Sinus rhythm. ED Course: 11:04 Patient arrived in ED. ss 11:10 Triage completed. ss 11:10 Arm band placed on right wrist. ss 11:12 Saw Chicas MD is Attending Physician. rn 11:15 EKG done, by ED staff, reviewed by Saw Chicas MD. Changed dressing on left hand mb4 Converted IV to saline lock on left hand. 11:35 Kisha Thompson, RN is Primary Nurse. hb 11:38 CT Head Brain wo Cont In Process Unspecified. EDMS 11:45 XRAY Chest (1 view) In Process Unspecified. EDMS 13:32 Lab(s) recollected, by me, sent to lab. mb4 13:51 Lab(s) recollected, by me, sent to lab. mb4 15:40 Maida Rodriguez MD is Hospitalizing Provider. rn 19:20 Extrem Venous W Compress Jerson In Process Unspecified. EDMS 19:21 Primary Nurse role handed off by Kisha Thompson, CARLEY mw2 19:33 Patient has correct armband on for positive identification. Placed in gown. Bed in low cw2 position. Call light in reach. Side rails up X2. Door closed. Noise minimized. Lights dimmed. Moved to private room. 19:33 No provider procedures requiring assistance completed. cw2 20:22 aLlo Cuevas, RN is Primary Nurse. cw2 Administered Medications: 15:56 Drug: Aspirin Chewable Tablet 324 mg Route: PO; ss 23:21 Follow up: Response: No adverse reaction wg Outcome: 15:40 Decision to Hospitalize by Provider. rn 23:39 Admitted to Tele accompanied by tech, via stretcher, room 207, with chart, Report wg called to CARLEY Dias 07/14 00:26 Patient left the ED. wg Signatures: Dispatcher [employer] EDMS Saw Chicas MD MD rn Smirch, Shelby, RN RN Kisha Thompson, Nancy Hill RN mw2 Sari Thompson mb4 Ronny Shields RN Lalo Cuevas, CARLEY RN cw2
[2021-07-13] MEDS ORDERED: ASPIRIN 81 MG CHEWABLE TABLET ONE (16:15)
[2021-07-13] MEDS ORDERED: ACETAMINOPHEN 500 MG TAB PO PRN (17:14)
[2021-07-13] MEDS ORDERED: LABETALOL 20 MG/4ML SYRINGE IV PRN (17:14)
[2021-07-13] MEDS ORDERED: ONDANSETRON 4 MG/2 ML VIAL IV PRN (17:14)
[2021-07-13] MEDS ORDERED: D50W 25 GM/50 ML SYRINGE IV PRN ×2 (17:27→17:29)
[2021-07-13] MEDS ORDERED: GLUCAGON 1 MG/VIAL IM PRN ×2 (17:27→17:29)
--- NOTE | 2021-07-13 17:31 | P.HP ---
Certification for Inpatient Patient admitted to: Inpatient With expected LOS: >2 Midnights Patient will require the following post-hospital care: None Practitioner: I am a practitioner with admitting privileges, knowledge of patient current condition, hospital course, and medical plan of care. Services: Services provided to patient in accordance with Admission requirements found in Title 42 Section 412.3 of the Code of Federal Regulations Patient History Date of Service: 07/14/21 Reason for admission: Chest pain History of Present Illness: Patient is a 50-year-old female with a past medical history significant for DM 2, hypothyroidism, [place], CAD with stent, CVA who presents with complaint of chest pain located in the substernal chest area with radiation to the right chest wall onset this morning. Patient rated pain as 8/10 in severity and described pain as tightness in quality. She also reports bilateral lower extremity pain for the past 1 week and patient also complains of upper back pain. Patient indicates that she has swelling and pain on her right thigh. Patient reported associated s\s of nausea and sob. Patient denies any other signs or symptoms. Symptoms are aggravated by exertion relieved by rest. Patient decided to present to the hospital due to worsening symptoms. Allergies codeine Allergy (Verified 06/19/17 08:04) UNK morphine Allergy (Verified 06/19/17 08:04) UNK prochlorperazine [From Compazine] Allergy (Verified 06/19/17 08:04) UNK cod Allergy (Uncoded 06/19/17 11:42) Unknown codeine sulfate Allergy (Uncoded 11/26/17 23:43) Unknown Home Medications: Atorvastatin Calcium [Lipitor] 40 mg PO BEDTIME 06/19/17 Insulin Aspart [Novolog] 0 units SQ ACHS 06/19/17 Levothyroxine Sodium [Synthroid] 137 mcg PO DAILY 06/19/17 Clopidogrel Bisulfate [Plavix*] 75 mg PO DAILY #0 06/20/17 Insulin Glargine,Hum.rec.anlog [Lantus] 25 unit SQ BEDTIME #10 ml 06/20/17 Metoprolol Tartrate [Lopressor*] 25 mg PO BID #60 06/20/17 Aspirin 81 mg PO DAILY 11/27/17 Sertraline [Zoloft*] 50 mg PO DAILY 11/27/17 Fluconazole [Diflucan] 100 mg PO DAILY #3 tablet 11/28/17 - Past Medical/Surgical History Diabetic: Yes -: IDDM -: Hypothyroidism -: AMI 2014 -: CABG sugery 2014 -: Coronary stent 2014 - Family History Father -: Heart disease Mother -: Cancer - Social History Smoking Status: Former smoker Alcohol use: Yes CD- Drugs: No Caffeine use: Yes Place of Residence: Home Review of Systems General: Malaise, As per HPI Eyes: Unremarkable ENT: Unremarkable Respiratory: Shortness of Breath, SOB with Excertion Cardiovascular: Chest Pain Genitourinary: Unremarkable Musculoskeletal: Back Pain, Leg Pain, As per HPI Integumentary: Unremarkable Neurological: Unremarkable Lymphatics: Unremarkable Physical Examination - Physical Exam General: Alert, In no apparent distress, Oriented x3 HEENT: Atraumatic, PERRLA, Mucous membr. moist/pink, EOMI, Sclerae nonicteric Neck: Supple, 2+ carotid pulse no bruit, No LAD, Without JVD or thyroid abnormality Respiratory: Clear to auscultation bilaterally, Normal air movement Cardiovascular: Regular rate/rhythm, Normal S1 S2 Capillary refill: <2 Seconds Gastrointestinal: Normal bowel sounds, No tenderness Musculoskeletal: No clubbing, No contractures, Tenderness Integumentary: No rashes Neurological: Normal gait, Normal speech, Normal tone, Normal affect Lymphatics: No axilla or inguinal lymphadenopathy External genitalia: Deferred Rectal: Deferred - Studies Laboratory Data (last 24 hrs) 07/13/21 13:46: Sodium 137, Potassium 4.2, BUN 16, Creatinine 0.91, Glucose 302 H, Magnesium 2.0, Total Bilirubin 0.4, AST 73 H, ALT 56, Alkaline Phosphatase 120 H 07/13/21 11:25: PT 12.4, INR 1.08 07/13/21 11:25: WBC 8.50, Hgb 14.2, Hct 41.0, Plt Count 241 Assessment and Plan - Plan --Chest pain of unclear etiology. Cardiology consulted. Will trend serial troponin.. Telemetry to monitor for any significant arrhythmia. Echocardiogram pending. Further management per fountain clerk. --DM2. Poorly controlled. BS monitoring with sliding scale insulin, Premeal insulin and Lantus. --Hypothyroidism. Continue home medications. --Bilateral lower extremity pain. Doppler ultrasound pending to r\o DVT . Arterial Doppler studies to rule out PAD. --Acute pain. We will manage pain on current pain medication regimen. --Hyperlipidemia. Continue home medication. --Hypertension. Stable. Continue home medications and labetalol prn --Depression. Continue Zoloft. --History of [place] and CAD with stents. Continue aspirin, Plavix and statin. --DVT prophylaxis with Lovenox subQ I have had discussion about advanced directives with the patient during this hospital admission. Addressed code status and goals of care. Spent more than 30 minutes. Case discussed withpatient and nurse. The following document was completed using voice recognition software. This can produce digital marketing apprentice errors that can at times significantly distort words and phrases. Please interpret any aspect of the note that is nonsensical in light of this fact. Discharge Plan: Home Plan to discharge in: 48 Hours - Advance Directives Does patient have a Living Will: No Does patient have a Durable POA for Healthcare: No - Code Status/Comfort Care Code Status Assessed: Yes Code Status: Full Code Physician Review: Patient Assessed, Agree with Above Assessment and Plan Critical Care: No
[2021-07-13] MEDS ORDERED: HYDROCODONE/APAP 5/325 MG TAB PO PRN (17:34)
--- NOTE | 2021-07-13 21:50 | RAD REPORT ---
EXAM DESCRIPTION: US - Extrem Venous W Compress Jerson - 07/13/2021 7:21 pm CLINICAL HISTORY: Pain COMPARISON: None. TECHNIQUE: Real-time sonographic evaluation of the bilateral lower extremity common femoral, superfi cial femoral, popliteal and posterior tibial veins was performed. FINDINGS: Normal compressibility, flow augmentation, phasic flow and spontaneous flow are identified in the left and right lower extremity common femoral, superficial femoral, popliteal and posterior t ibial veins. No intraluminal filling defects seen. IMPRESSION: No DVT in either lower extremity.
[2021-07-14 00:24] VITALS: BMI 22.4
--- NOTE | 2021-07-14 00:32 | CON ---
Date of Consultation: 07/13/2021 History Of Present Illness: Ms. Bell is a 50-year-old white woman, who was admitted to Dr. Chicas's service on 07/13/2021 with chest pain. I saw the patient on 07/13/2021. Ms. Bell is 50, has a history of cardiac stent, diabetes, hypertension, hypothyroidism, and history of CVA. She comes in with substernal chest pressure with leg and arm pain, nausea, and diaphoresis. No shortness of breath. Denied any PND, orthopnea, pedal edema, palpitations, or syncope. Denied a [place] fever or chills. By the time I saw her, her symptoms have abated. Past Medical History: As stated above. Allergies: SHE IS ALLERGIC TO CODEINE, COMPAZINE, AND MORPHINE. Review of Systems: Negative. Social History: Negative. Family History: Noncontributory. Physical Examination: Vital Signs: Stable. Afebrile. HEENT: Negative. Neck: Supple. No bruit. Chest: Clear. Cardiac: Revealed a regular rhythm and rate. No murmurs, gallops, or rubs. Abdomen: Benign. Extremities: Revealed no clubbing, cyanosis, or edema. Diagnostic Data: Showed a glucose of 302. Her troponin was negative. She was COVID negative. Extr emity venous study was pending. Chest x-ray was negative. Head CT was negative. Impression And Plan: Chest pain in a patient with history of coronary artery disease status post reji nt, has a history of cerebrovascular accident, hypertension, and dyslipidemia. Negative troponin. I am comfortable with her having an echocardiogram and a stress test, the last time she had that was i n 2017. We will see what that shows before making further decision. Continue her present regimen ot fela. KATTY/HAZEL Voice ID: [id number] Report ID: [id number]
[2021-07-14] MEDS: METOPROLOL TAR 25 MG TAB PO SCH ×3 (00:46→19:42)
[2021-07-14] MEDS: ENOXAPARIN 40 MG/0.4 ML SQ SCH ×2 (00:46→09:00)
[2021-07-14] MEDS: INSULIN GLARGINE 100 UNITS/ML SQ SCH ×2 (00:47→19:43)
[2021-07-14] MEDS: INSULIN -REGULAR HUMAN 50 UNIT/0.5 ML ML SQ SCH ×5 (00:48→19:43)
[2021-07-14] MEDS: ATORVASTATIN 40 MG TAB PO SCH ×2 (00:50→19:42)
[2021-07-14 04:42] LABS: Absolute Lymphocytes (CBC) 3.4 K/uL (0.7-4.9); Basophils % 1.2 % (0-1.3); Hematocrit 42.8 % (36.0-45.0); Lymphocytes % 36.5 % (15.3-44.8); MPV 8.9 fL (7.6-11.3); RBC Red Blood Cell Count 4.69 M/uL (3.86-4.86)
[2021-07-14 05:15] LABS: BUN Blood Urea Nitrogen 16 mg/dL (7-18); Bicarbonate 29 mmol/L (21-32); Glucose Level 251 mg/dL (74-106); Sodium Level 138 mmol/L (136-145)
[2021-07-14 05:16] LABS: HDL Cholesterol 68 mg/dL (40-60); LDL Cholesterol, Calculated 94 (<130); Troponin I < 0.02 ng/mL (0.0-0.045)
[2021-07-14] MEDS: LEVOTHYROXINE SOD 0.025 MG TAB PO SCH (05:27)
[2021-07-14] MEDS: LEVOTHYROXINE SOD 0.112 MG TAB PO SCH (05:27)
--- NOTE | 2021-07-14 07:17 | RAD REPORT ---
EXAM DESCRIPTION: US - Lower Extremity Arterial Bilat - 07/14/2021 3:54 am CLINICAL HISTORY: Bilateral leg pain COMPARISON: None. TECHNIQUE: Doppler evaluation was performed with velocity values obtained in waveforms obtained monika g the length of each lower extremity. Visual inspection of the lower extremity arterial tree naomy allan FINDINGS: No occlusion or focal flow restricting lesion identifiable. The right common femoral, supe rficial femoral and popliteal veins showed a biphasic waveform pattern. The right posterior tibial ar randi was triphasic with the dorsalis pedis artery showing a blunted triphasic pattern. The left commo n femoral, superficial femoral and popliteal arteries were also biphasic. Left posterior tibial arter y was triphasic with the dorsalis pedis artery on the left monophasic. Atherosclerotic wall calcifications are identifiable. IMPRESSION: Mild lower extremity peripheral arterial disease. No occlusion or focal flow restricting lesion.
[2021-07-14] MEDS ORDERED: REGADENOSON 0.4 MG/5 ML SYR IV ONE (07:24)
[2021-07-14 08:19] LABS: Urine Appearance CLEAR (Clear); Urine Bilirubin NEGATIVE (Negative); Urine Blood NEGATIVE (Negative); Urine Color YELLOW (Yellow); Urine Glucose 3+ (Negative); Urine Protein TRACE (Negative); Urine Specific Gravity >=1.030 (1.005-1.030)
[2021-07-14 08:43] LABS: Urine Microscopic Reflex NO UMIC
[2021-07-14] MEDS ORDERED: HOME MED 1 EA UNK (Levothyroxine Sodium [Synthroid] 137 MCG Tablet) PO SCH (09:00)
[2021-07-14] MEDS: SERTRALINE HCL 50 MG TAB PO SCH (09:00)
[2021-07-14] MEDS: ASPIRIN 81 MG CHEWABLE TABLET PO SCH (09:00)
[2021-07-14] MEDS: CLOPIDOGREL 75 MG TABLET PO SCH (09:00)
--- NOTE | 2021-07-14 12:55 | RAD REPORT ---
EXAM DESCRIPTION: NM - Rest Stress Cardiac Imaging - 07/14/2021 12:48 pm CLINICAL HISTORY: Chest pain COMPARISON: November 2017 TECHNIQUE: The patient was administered 10.6 mCi of Tc 99m Sestamibi prior to resting SPECT imaging of the heart. The patient was then administered 31.1 mCi of Tc 99m Sestamibi following exercise or ph armacologic stress. Multiplanar SPECT images were reviewed. FINDINGS: The end diastolic volume is 49 ml, the end systolic volume is 18 ml, and the ejection frac tion is 62 %. Ejection fraction is similar to the comparison study. Physiologic distribution of the radiopharmaceutical through the myocardium is noted. No stress induce d ischemic defect is seen to suggest stress induced ischemia. No fixed defect is seen to suggest hibe rnating myocardium or scarred myocardium. Left ventricular findings are not clearly different from t 2018 study. IMPRESSION: No stress induced ischemia or other suspicious findings. Ventricular volumes and ejection fraction are normal range. Ejection fraction has not change from 201 8.
[2021-07-14] MEDS ORDERED: GLUCAGON 1 MG/VIAL IM PRN (16:37)
[2021-07-14] MEDS ORDERED: D50W 25 GM/50 ML SYRINGE IV PRN (16:37)
--- NOTE | 2021-07-14 16:47 | EKG ---
Test Date: 2021-07-13 Test Time: 11:12:35 Service Coordinator: LOUISE MEASUREMENT RESULTS: Intervals: Rate: 62 GA: 160 QRSD: 92 QT: 460 QTc: 466 [place]: P: 51 GA: 160 QRS: 84 T: 92 INTERPRETIVE STATEMENTS: Normal sinus rhythm Normal ECG Compared to ECG 10/02/2019 20:34:50 No significant changes Electronically Signed On 07-14-21 16:43:06 CDT by Mick Latif
[2021-07-14] MEDS ORDERED: INSULIN GLARGINE 100 UNITS/ML SQ ONE (17:00)
--- NOTE | 2021-07-14 17:01 | P.DS ---
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 Patient rated pain as 8/10 in severity and described pain as tightness in quality. She also reports bilateral lower extremity pain for the past 1 week and patient also complains of upper back pain. Patient indicates that she has swelling and pain on her right thigh. Patient reported associated s\s of nausea and sob. Initial troponin negative. EKG shows sinus rhythm. No ischemic changes. Patient placed under observation for ACS rule out. Hospital Course: Troponin trended negative. Patient was seen in consultation by cardiology-Dr. Latif who ordered stress test. Stress test came back with no stress-induced ischemia or fixed defect. Patient was hyperglycemia after the stress test and got an extra dose of Lantus insulin 10 units. ACS has been ruled out. Patient is on aspirin and Plavix which is continued on discharge. She is currently asymptomatic, chest pain-free. Patient developed an episode of severe hyperglycemia with associated transient confusion. She was also complaining of difficulty moving her lower extremities. CT head done did not show any acute stroke. Patient's symptoms resolved with blood sugar control. It appears her blood sugar is brittle. She is discharged with her home dose Lantus insulin. Vital Signs/Physical Exam: Temp Pulse Resp BP Pulse Ox 97.9 F 62 17 129/75 97 07/14/21 12:00 07/14/21 12:00 07/14/21 12:00 07/14/21 12:00 07/14/21 12:00 General: Alert, In no apparent distress, Oriented x3 HEENT: Mucous membr. moist/pink Neck: JVD not distended Respiratory: Clear to auscultation bilaterally, Normal air movement Cardiovascular: Regular rate/rhythm, Normal S1 S2, No murmurs Gastrointestinal: Normal bowel sounds, Soft and benign, Non-distended, No tenderness Musculoskeletal: No swelling Integumentary: No rashes Neurological: Normal strength at 5/5 x4 extr Laboratory Data at Discharge: WBC 9.30 K/uL (4.3-10.9) 07/14/21 03:52 Hgb 14.6 g/dL (12.0-15.0) 07/14/21 03:52 Hct 42.8 % (36.0-45.0) 07/14/21 03:52 Plt Count 241 K/uL (152-406) 07/14/21 03:52 PT 12.4 SECONDS (9.5-12.5) 07/13/21 11:25 INR 1.08 07/13/21 11:25 Sodium 138 mmol/L (136-145) 07/14/21 03:52 Potassium 4.0 mmol/L (3.5-5.1) 07/14/21 03:52 BUN 16 mg/dL (7-18) 07/14/21 03:52 Creatinine 1.05 mg/dL (0.55-1.3) 07/14/21 03:52 Glucose 251 mg/dL (74-106) H 07/14/21 03:52 Phosphorus Cancelled 07/14/21 05:00 Magnesium 2.0 mg/dL (1.8-2.4) 07/13/21 13:46 Total Bilirubin 0.4 mg/dL (0.2-1.0) 07/13/21 13:46 AST 73 U/L (15-37) H 07/13/21 13:46 ALT 56 U/L (12-78) 07/13/21 13:46 Alkaline Phosphatase 120 U/L (45-117) H 07/13/21 13:46 Troponin I < 0.02 ng/mL (0.0-0.045) 07/14/21 03:52 Triglycerides 232 mg/dL (<150) H 07/14/21 03:52 Cholesterol 208 mg/dL (<200) H 07/14/21 03:52 HDL Cholesterol 68 mg/dL (40-60) H 07/14/21 03:52 Cholesterol/HDL Ratio 3.06 07/14/21 03:52 Home Medications: Atorvastatin Calcium [Lipitor] 40 mg PO BEDTIME 06/19/17 Insulin Aspart [Novolog] 0 units SQ ACHS 06/19/17 Levothyroxine Sodium [Synthroid] 137 mcg PO DAILY 06/19/17 Clopidogrel Bisulfate [Plavix*] 75 mg PO DAILY #0 06/20/17 Insulin Glargine,Hum.rec.anlog [Lantus] 25 unit SQ BEDTIME #10 ml 06/20/17 Metoprolol Tartrate [Lopressor*] 25 mg PO BID #60 06/20/17 Aspirin 81 mg PO DAILY 11/27/17 Sertraline [Zoloft*] 50 mg PO DAILY 11/27/17 Fluconazole [Diflucan] 100 mg PO DAILY #3 tablet 11/28/17 Diet: ADA Activity: Ad esther Followup: Mick Latif MD [ACTIVE - CAN ADMIT] - 1-2 Weeks Wilder Posadas MD [Primary Care Provider] - 1-2 Weeks
--- NOTE | 2021-07-14 17:36 | RAD REPORT ---
EXAM DESCRIPTION: CT - Head Brain Wo Cont - 07/14/2021 5:29 pm CLINICAL HISTORY: generalized weakness Headache, drowsiness, CVA symptomology COMPARISON: Head Brain Wo Cont dated 07/13/2021; Sinus Wo Cont dated 09/11/2018 TECHNIQUE: All CT scans are performed using dose optimization technique as appropriate and may inclu de automated exposure control or mA/KV adjustment according to patient size. FINDINGS: No intracranial hemorrhage, hydrocephalus or extra-axial fluid collection.No areas of brai n edema or evidence of midline shift. The paranasal sinuses and mastoids are clear. The calvarium is intact. IMPRESSION: No acute intracranial abnormality.
[2021-07-14] MEDS ORDERED: INSULIN -REGULAR HUMAN 50 UNIT/0.5 ML ML IV ONE (18:10)
--- NOTE | 2021-07-14 19:02 | P.PN ---
Subjective Date of Service: 07/14/21 Chief Complaint: Chest pain Patient was chest pain-free today. She developed transient confusion and weakness in the limb. Blood glucose was 493 at that time. Patient ate [employer] sandwich brought by family. Blood glucose of 1 hr later reading greater than 500. Physical Examination - Vital Signs Temperature: 97.6 F Blood Pressure: 160/83 Pulse: 84 Respirations: 17 Pulse Ox (%): 98 - Physical Exam General: Oriented x2, Other (Lethargic) HEENT: Mucous membr. moist/pink Neck: JVD not distended Respiratory: Clear to auscultation bilaterally, Normal air movement Cardiovascular: No edema, Regular rate/rhythm, Normal S1 S2, No murmurs Gastrointestinal: Normal bowel sounds, Soft and benign, Non-distended, No tenderness Musculoskeletal: No swelling, No tenderness Integumentary: No rashes, No erythema Neurological: Normal speech, Normal strength at 5/5 x4 extr, Cranial nerves 3-12 intact - Studies Laboratory Data (last 24 hrs) 07/13/21 20:15: Troponin I < 0.02 Assessment And Plan - Current Problems (Diagnosis) (1) Chest pain Current Visit: Yes Status: Acute (2) Coronary artery disease Current Visit: Yes Status: Acute (3) Hypothyroidism (acquired) Current Visit: Yes Status: Acute (4) Type 2 diabetes mellitus Onset Date: 06/20/17 Current Visit: No Status: Chronic Qualifiers: Diabetes mellitus 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 ACS ruled out. Patient has acute metabolic encephalopathy secondary to hyperglycemia. She was covered by insulin sliding scale, additional 10 units Lantus insulin, and 10 unit IV Regular. Continue management as inpatient. Monitor blood glucose q.1 hr after IV regular insulin. She is scheduled for her evening dose Lantus 25 units. Further management pending her blood sugar reading after the IV regular insulin dose. Will consider insulin drip for blood sugar is still quite elevated after the IV regular insulin.
[2021-07-14 20:03] LABS: Potassium 4.3 mmol/L (3.5-5.1)
[2021-07-15 00:20] VITALS: O2SAT 94
[2021-07-15] MEDS: LEVOTHYROXINE SOD 0.112 MG TAB PO SCH (05:44)
[2021-07-15] MEDS: LEVOTHYROXINE SOD 0.025 MG TAB PO SCH (05:44)
[2021-07-15 06:39] LABS: Basophils % 0.7 % (0-1.3); Hematocrit 45.8 % (36.0-45.0); Lymphocytes % 26.4 % (15.3-44.8); MPV 8.5 fL (7.6-11.3); RBC Red Blood Cell Count 4.93 M/uL (3.86-4.86)
[2021-07-15 06:51] LABS: Potassium 4.2 mmol/L (3.5-5.1)
--- NOTE | 2021-07-15 08:17 | ECHO ---
HEIGHT: 5 ft 5 in WEIGHT: 135 lb 0 oz DATE OF STUDY: 07/14/[address]: Lucius Hammer 2-DIMENSIONAL: YES M.MODE: YES DOPPLER: YES COLOR FLOW: YES TDS: NO PORTABLE: NO DEFINITY: NO BUBBLE STUDY: NO DIAGNOSIS: CHEST PAIN CARDIAC HISTORY: CATHERIZATION: YES SURGERY: YES PROSTHETIC VALVE: NO PACEMAKER: NO MEASUREMENTS (cm) DIASTOLIC (NORMALS) SYSTOLIC (NORMALS) IVSd 1.0 (0.6-1.2) LA Diam 1.9 (1.9-4.0) LVEF 72% LVIDd 3.3 (3.5-5.7) LVIDs 2.0 (2.0-3.5) %FS 40% LVPWd 1.0 (0.6-1.2) Ao Diam 2.7 (2.0-3.7) 2 DIMENSIONAL ASSESSMENT: RIGHT ATRIUM: LEFT ATRIUM: RIGHT VENTRICLE: LEFT VENTRICLE: TRICUSPID VALVE: MITRAL VALVE: PULMONIC VALVE: AORTIC VALVE: PERICARDIAL EFFUSION: AORTIC ROOT: LEFT VENTRICULAR WALL MOTION: DOPPLER/COLOR FLOW: COMMENTS: NORMAL 2D ECHO WITH DOPPLER. NO WALL MOTION ABNORMALITY. TECHNOLOGIST: IVY FERRELL
--- NOTE | 2021-07-15 08:26 | TREADPHA ---
DX: CHEST PAIN Date of Study: 07/14/21 Ht: 5' 5 " Wt: 135 lb 0 oz Consulting Physician: DENISSE MEDICATIONS: PLAVIX, LIPITOR, LOVENOX, NOVOLIN -R, LOPRESSOR HISTORY: 50 YEAR OLD FEMALE WITH COMPLAINTS OF CHEST PAIN. SMOKES FOUR PACKS A WEEK; DRINKS OCCASIONALLY. HISTORY OF DIABETES MELLITUS II. PHYSICIAL EXAMINATION: RESTING B.P.: 144/84 RESTING H.R.: 63 RESTING EKG: SINUS RHYTHM, POOSIBLE OLD ANTERIOR MYOCARDIAL INFARCTION PROTOCOL: LEXISCAN EXERCISE TIME: 3:30 B.P. AT PEAK STRESS: 108/61 IMPRESSION: LEXISCAN INJECTED. CARDIOLITE INJECTED PER PROTOCOL, SEE NUCLEAR MEDICINE REPORT. NO CHEST PAIN, SUPRA VENTRICULAR TACHYCARDIA, VENTRICULAR TACHYCARDIA, PREMATURE VENTRICULAR COMPLEXES.
[2021-07-15] MEDS: ASPIRIN 81 MG CHEWABLE TABLET PO SCH (08:28)
[2021-07-15] MEDS: INSULIN -REGULAR HUMAN 50 UNIT/0.5 ML ML SQ SCH ×2 (08:28→12:03)
[2021-07-15] MEDS: METOPROLOL TAR 25 MG TAB PO SCH (08:29)
[2021-07-15] MEDS: ENOXAPARIN 40 MG/0.4 ML SQ SCH (08:29)
[2021-07-15] MEDS: CLOPIDOGREL 75 MG TABLET PO SCH (08:29)
[2021-07-15] MEDS: SERTRALINE HCL 50 MG TAB PO SCH (08:29)
[2021-07-15 12:29] VITALS: BP 104/71; TEMP 97.7
--- NOTE | 2021-07-16 16:48 | PN ---
Date of Progress Note: 07/14/2021 Ms. Bell has come in with chest pain. Has a history of CAD in the past. Overnight, no chest pain r eported. Telemetry remained in normal rhythm. Echocardiogram which was done today was normal withou t any wall motion abnormalities or pericardial effusion. Troponin remained negative. Lexiscan showe d no evidence of ischemia. I think Mrs. Bell' chest pain is probably pleuritic or gastroesophageal in nature. She can go home whenever it is okay with admitting physician. We will be happy to see he r in the office in the near future. KATTY/HAZEL Voice ID: [id number] Report ID: [id number]
== END 2021-07-15 13:01 | disposition home or self-care (01) | DRG 313 ==
LOC: ER 10:44 → OBSVTOIN 23:46 → INTOOBSV 23:46 → 2ND 23:46 → OBSVTOIN 07-14 19:04
PROVIDERS: ADMIT Internal Medicine; ATTEND Hospitalist
DX: R07.9 Chest pain, unspecified (principal); E11.00 Type 2 diabetes mellitus with hyperosmolarity without nonketotic hyperglycemic-hyperosmolar coma (NKHHC); G93.41 Metabolic encephalopathy; I25.10 Atherosclerotic heart disease of native coronary artery without angina pectoris; E03.9 Hypothyroidism, unspecified; I10 Essential (primary) hypertension; E11.65 Type 2 diabetes mellitus with hyperglycemia; M79.605 Pain in left leg; M79.604 Pain in right leg; E78.5 Hyperlipidemia, unspecified; F32.A Depression, unspecified; Z86.73 Personal history of transient ischemic attack (TIA), and cerebral infarction without residual deficits; I25.2 Old myocardial infarction; Z20.822 Contact with and (suspected) exposure to COVID-19; Z95.5 Presence of coronary angioplasty implant and graft
CPT/HCPCS: 36415; 70450; 71045; 78452; 80048; 80061; 80076; 81003; 82947; 83735; 83880; 84100; 84439; 84443; 84484; 85025; 85610; 93005; 93017; 93306; 93925; 93970; 99285; A9500; G0378; J1650; J1815; J2785; U0003